=== PATIENT | female | born 1955 | race Caucasian/White ===

== ENCOUNTER 2024-04-21 16:14 | Inpatient (IN) | payer BC, MEDICARE, SELFPAY ==
[2024-04-21 15:44] VITALS: RESP 18; O2SAT 96
[2024-04-21 15:49] VITALS: BP 132/74; PULSE 64; RESP 18; TEMP 36.4; O2SAT 96; BMI 26.1
--- NOTE | 2024-04-21 16:42 | P.IMHP_ITS ---
Hospitalist- H&P: HPI History of Present Illness Date Seen: 04/21/24 Chief complaint: sodium 118 - from [facility] Narrative: Rosy Ac is a 68 year old female who was direct admitted from our Cancer [facility] clinic today for acute on chronic hyponatremia. 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 Today, her Sodium in clinic was 118. She received a 1L bolus of NS over 2 hours in [facility] prior to arrival on the floor. Currently has no headache, dizziness, or visual complaints. She's at her baseline physically. Recently placed on oral Sodium replacement, tolerating this okay. She has had intermittent nausea, but notes that she's been eating well over the past few days. Hasn't been actively limiting free water intake. Currently, no complaints pain, abdominal or otherwise. Oncology history below, shares care with Oncology team at [facility] and [facility]. 1. Presentation: Developed cough June 2023, leading to CT chest. During the preceding year, she noticed increasing dyspnea on exertion. 2. Critical Imagin07/18/[address]: 1. 4 cm right lower lobe mass with irregular margins. Multiple other pleural and parenchymal nodules. Neoplasm, such as bronchogenic carcinoma, is a primary consideration. Recommend PET/CT to further characterize and identify possible targets for tissue sampling. 2. Mediastinal and likely right hilar adenopathy. 3. Emphysema, with some reticular changes in the periphery of both lungs. Suspect a combination of obstructive and restrictive lung disease. 4. 1.8 cm ovoid hypodensity along the diaphragmatic surface of the liver, possibly a liver lesion. 3. Biopsy/Pathology: 08/27/2023: Liver, mass, biopsy: Metastatic high grade neuroendocrine carcinoma. Based on the clinical information and immunoperoxidase profile, the origin of this tumor is from a pulmonary small cell carcinoma. [facility] review-- Liver, needle core biopsy ([id number]; 08/27/2023): High-grade neuroendocrine carcinoma, small cell type. Immunohistochemistry (reviewed at [facility]) shows expression of synaptophysin and TTF-1 while CDX2 is negative. Ki 67 highlights more than 90% of the tumor cells. 4. Critical Imaging 09/04/2023 PET-CT: 1. Stage IV right small cell lung cancer with diamante, innumerable hepatic, and skeletal metastasis (left ischial tuberosity, right femoral head, left acetabulum) 09/04/2023 MR Brain: 1. 5 mm nodular enhancement in left posterior paramedian cerebellar hemisphere which, given the history, would be c/w metastasis. Patchy abnormal enhancement right basiocciput and right side of clivus c/w findings on PET/CT; also c/w metastases. Additional osseous detail may be obtained with CT. Moderate chronic ischemic change. Mild atrophy. Bilateral mastoid opacification. 5. Systemic therapy 09/06/2023 - CARBOplatin / Etoposide / Durvalumab, first line, palliative intent CY1: 09/06/23 CY2: 10/10/23 Note: On hold after 10/10/23 due to multiple acute complications including severe sepsis/hypotension/left lower lobe pneumonia/fever/diarrhea associated with br ight red blood per rectum, generalized weakness/nausea poor appetite/paraneoplastic SIADH syndrome, emphysema/electrolyte impairment/pain. CY3: 11/25/23 CY4: 12/16/23 Durvalumab maintenance: 01/08/24 Discontinued therapy for progression on PET 01/29/2024 6. Critical Imaging 11/07/2023 MRI brain: - consistent with favorable treatment response in the cerebellum. No residual enhancing metastases is identified in the posterior fossa. - New 1-2 mm indeterminate enhancing lesion in the left frontal lobe a new versus more conspicuous enhancing lesion in the right basal ganglia. Both lesions concerning for new sites of intracranial metastatic disease. - Decreased conspicuity of the signal abnormality and enhancement in the suspected osseous metastases in right skull base. 11/07/2023 MRI of lumbar spine: - consistent with metastases involving the posterior L4 vertebral body with slight extension into right pedicle corresponding to the FDG avid lesion. - Additional smaller L2/S2 vertebral body metastases and probable metastases involving L2 spinous process with paraspinal edema. 11/07/2023 PET scan: - consistent with new left lower lobe FDG avid consolidation with cavitary changes favored to represent pneumonia. Partial metabolic response. - FDG avid pulmonary/pleural malignancy, diamante/hepatic/osseous metastases have overall decreased compared to 09/04/2023. - The FDG uptake in the L2 spinous process indeterminate. Lumbar spine could evaluate further. 01/07/2024 MRI brain: - Small linear enhancement in the left posteromedial cerebellum at the site of prior enhancing lesion seen in 09/04/2023 MRI, but new since 11/07/2023 MRI. Although could be evolving treatment related change, small recurrent tumor cannot be excluded. 01/09/2024 MRI lumbar spine: - No new osseous metastases. Decreased signal associated with the L2 endplate and S2 vertebral body metastases No plan for radiation or Neurosurgery at this time. Continue to monitor both brain skeletal disease for change/symptoms 7. Progression 01/29/2024 PET/CT: - interval increased metabolic activity and size of right lower lobe pulmonary mass/nodules, interval marked progression of hepatic metastases, interval s lightly increased metabolic activity of osseous metastases, and interval increased metabolic activity of diamante metastases most prominent in retrocrural/paraesophageal nodes 8. Systemic Therapy 02/06/2024 - Lurbinectedin, second line, palliative intent CY1: 02/06/24 CY2: 02/27/24 CY3: Tentatively around 03/18/2024 03/17/2024 CT chest abdomen pelvis Impression: 1. Right lower lobe nodule and mass have decreased in size. 2. Previously described left lower lobe infectious/inflammatory cavitary opacity has resolved. 3. Resolved small left pleural effusion. Decreased right pleural nodular effusion. 4. Remainder not significantly changed, including the combined pulmonary fibrosis and emphysema and mosaic attenuation that likely represent small airways disease related air trapping. Review of Systems Status of ROS: Reports: 10 or more systems reviewed and unremarkable except as noted in History and below [facility] Medical History (Updated 04/21/24 @ 18:24 by Courtney Blair MD) Chronic pulmonary embolism ?I27.82 - Chronic pulmonary embolism (ICD-10) Hypothyroidism ?E03.9 - Hypothyroidism, unspecified (ICD-10) Metastatic carcinoma to bone ?C79.51 - Secondary malignant neoplasm of bone (ICD-10) Emphysema lung ?J43.9 - Emphysema, unspecified (ICD-10) Dehydration symptoms ?R63.8 - Other symptoms and signs concerning food and fluid intake (ICD-10) GI bleed ?K92.2 - Gastrointestinal hemorrhage, unspecified (ICD-10) Pneumonia ?J18.9 - Pneumonia, unspecified organism (ICD-10) Sepsis ?A41.9 - Sepsis, unspecified organism (ICD-10) Smoking history ?Z87.891 - Personal history of nicotine dependence (ICD-10) Dermatitis ?L30.9 - Dermatitis, unspecified (ICD-10) Hyponatremia ?E87.1 - Hypo-osmolality and hyponatremia (ICD-10) History of syndrome of inappropriate antidiuretic hormone (SIADH) ?Z86.39 - Personal history of other endocrine, nutritional and metabolic disease (ICD-10) Surgical History (Updated 04/21/24 @ 18:20 by Courtney Blair MD) History of thrombectomy ?Z98.890 - Other specified postprocedural states (ICD-10) ?Z86.718 - Personal history of other venous thrombosis and embolism (ICD-10) History of gastric bypass ?Z98.84 - Bariatric surgery status (ICD-10) Social History (Updated 04/21/24 @ 17:35 by Courtney Blair MD) Narrative: Living with tramaine Love and CASI Heaton; they would be medical decision makers if needed. Former smoker, no concerning ETOH use. Requests DNI status, amenable to trial of CPR. What is your current living situation?: I presently have a place to live Problems where you live: no known problems Problems where you live details: no problems In the past 12 months, utilities in danger of being shut off: no In past 12 months, lack of transportation kept you from medical appts, meetings, work, or getting things needed for daily living: no In the past 12 mos, have been you worried that your food would run out before you had money to buy more?: never true In the past 12 mos, the food you bought just didn't last and you didn't have money to buy more?: never true Smoking Status: Former smoker Do you use any of these nicotine containing products: None Second hand tobacco smoke exposure: No How often do you have a drink containing alcohol: 2-4 times a month Alcohol type: wine How many standard drinks containing alcohol do you have on a typical day: 1 or 2 How often do you have six or more drinks on one occasion: Never AUDIT-C Alcohol total score: 2 Non-prescribed substance use: denies use Caffeine: Yes How often does anyone, including family, friends and others, physically hurt you : never How often does anyone, including family, friends and others, insult or talk down to you: never How often does anyone, including family, friends and others, threaten you with harm: never How often does anyone, including family, friends and others, scream or curse at you: never Are you using contraception or practicing any form of control: No service: No Meds Home Medications and Allergies Home Medications ?Medication ?Instructions ?Recorded ?Confirmed ?Type acetaminophen 500 mg capsule 500 mg PO Q6H PRN 11/19/23 04/21/24 History albuterol sulfate 90 mcg/actuation 2 puff inhalation Q6H PRN 11/19/23 04/21/24 History aerosol inhaler apixaban 5 mg tablet (Eliquis) 5 mg PO BID 11/19/23 04/21/24 History ascorbic acid (vitamin C) 500 mg 500 mg PO DAILY 11/19/23 04/21/24 History capsule calcium carbonate 600 mg-vitamin 1 tab PO QDAY 11/19/23 04/21/24 History D3 20 mcg (800 unit) tablet carboxymethylcellulose sodium 1 % 1 drp ophthalmic (eye) TID PRN 11/19/23 04/21/24 History eye drops (Artificial Tears (carboxymethylcellulose)) cyanocobalamin (vitamin B-12) 500 1,000 mcg PO .qod 11/19/23 04/21/24 History mcg lozenges cyclobenzaprine 10 mg tablet 10 mg PO Q6H PRN 11/19/23 04/21/24 History iron,carbonyl 65 mg-vitamin C 125 1 tab PO QDAY 11/19/23 04/21/24 History mg tablet,delayed release lorazepam 0.5 mg tablet 0.5 mg PO BID PRN 11/19/23 04/21/24 History lutein 20 mg capsule 20 mg PO QDAY 11/19/23 04/21/24 History morphine 15 mg tablet,extended 15 mg PO QHS PRN 11/19/23 04/21/24 History release multivitamin with minerals-folic 1 tab PO QDAY 11/19/23 04/21/24 History acid 80 mcg chewable tablet (Centrum Adult 50 Plus) olanzapine 5 mg tablet 5 mg PO DIRECTED 11/19/23 04/21/24 History omega 5-wzu-vhm-fish oil 300 1 cap PO QDAY 11/19/23 04/21/24 History mg-1,000 mg capsule ondansetron 8 mg disintegrating 8 mg PO Q8H PRN 11/19/23 04/21/24 History tablet oxycodone 5 mg tablet 5 mg PO Q4H PRN 11/19/23 04/21/24 History oxymetazoline 0.05 % nasal mist 2 spray intranasal Q12H PRN 11/19/23 04/21/24 History (Afrin (oxymetazoline)) pantoprazole 40 mg tablet,delayed 40 mg PO QDAY 11/19/23 04/21/24 History release polyethylene glycol 3350 17 gram 17 g PO QDAY 11/19/23 04/21/24 History oral powder packet chlorpheniramine maleate 4 mg 4 mg PO Q4-6H PRN 02/06/24 04/21/24 History tablet (Aller-Chlor) levothyroxine 175 mcg tablet 175 mcg PO DAILY 02/06/24 04/21/24 History metoprolol tartrate 25 mg tablet 6.25 mg PO QDAY 02/27/24 04/21/24 History sennosides 8.6 mg-docusate sodium 1 tab-cap PO QDAY 04/13/24 04/21/24 History 50 mg tablet Allergies Allergy/AdvReac Type Severity Reaction Status Date / Time fosaprepitant Allergy Severe Anaphylaxis Verified 04/21/24 15:57 [From Emend (fosaprepitant)] Exam Narrative: Exam Narrative: GEN: Alert and oriented, appears chronically ill but nontoxic, sitting comfortably in bed and answering questions appropriately HEENT: EOMIs bilaterally, no scleral icterus CV: RRR, No concerning murmurs R: LCTA bilaterally without concerning wheezing, no tachypnea Ab: Soft and nontender, tolerates palpation well. Normoactive bowel sounds Ext: + clubbing BUEs, no concerning edema Skin: Scattered bruising on extremities Neuro: No focal deficits Psych: Appropriate Const: Vital Signs, click to edit/add: Vital Signs - 24 hr 04/21/24 15:49 Temperature 97.5 F L Pulse Rate [Pulse Oximeter] 64 Respiratory Rate 18 Blood Pressure [Le ft Arm] 132/74 Pulse Oximetry 96 Oxygen Delivery Me thod Room Air Assessment and Plan Assessment and plan (1) Hyponatremia: Problem comment: - known history of SIADH, baseline sodium 130 - repeat Na on the floor 117, will give 50mL of hypertonic saline and follow sodium closely to ensure appropriate rate of correction - continue home supplement, mild fluid restriction + thrice daily protein shakes Status: Acute (2) Small cell lung cancer in adult: Problem comment: - extensive stage high grade neuroendocrine carcinoma of the lung (small cell) diagnosed 08/2023 - brain and liver mets Status: Acute (3) Anorexia: Problem comment: - associated with metastatic cancer Status: Acute (4) Chronic pulmonary embolism: Problem comment: - on Eliquis BID Status: Acute Plan - per above - no therapy or SW needs identified on admission, plans to d/c home with son when medically stable - Eliquis and PPI for ppx - son Ivan updated at bedside, questions answered
[2024-04-21 16:53] LABS: Sodium* 117 mmol/L (135-149)
[2024-04-21] MEDS: 0.9 % SODIUM CHLORIDE 1000 ml 1,000 ML 75 ML IV (17:33)
[2024-04-21 19:00] VITALS: BP 116/71; PULSE 69; RESP 18; TEMP 36.7; O2SAT 99
--- NOTE | 2024-04-21 19:00 | PC.NURSE ---
Pt is pleasant, alert, oriented and vitally stable. Admitted to med surg via wheelchair. Son at bedside. 1500 cc fluid restriction.
[2024-04-21] MEDS: 3 % SODIUM CHLORIDE 500 ml 50 ML 33.33 ML IV (19:29)
[2024-04-21] MEDS: GABAPENTIN 300 MG CAPSULE PO (20:44)
[2024-04-21] MEDS: APIXABAN 5 MG TABLET PO (20:45)
[2024-04-21] MEDS: MEMANTINE HCL 10 MG TABLET 5 MG PO (20:45)
[2024-04-21 22:18] LABS: Sodium* 118 mmol/L (135-149)
[2024-04-21 23:00] VITALS: BP 114/66; PULSE 66; PULSE 69; RESP 18; TEMP 36.8; O2SAT 99
[2024-04-22] VITALS (8 sets, daily range): BP systolic 71–134; BP diastolic 41–78; PULSE 63–97; RESP 16–20; TEMP 36.1–37.4; O2SAT 93–99; BMI 25.7
[2024-04-22 02:41] LABS: Sodium* 120 mmol/L (135-149)
[2024-04-22] MEDS: LEVOTHYROXINE 25 MCG TABLET 50 MCG PO (05:52)
[2024-04-22] MEDS: LEVOTHYROXINE 125 MCG TABLET PO (05:53)
--- NOTE | 2024-04-22 06:25 | PC.NURSE ---
End of shift [id number]: Pleasant and cooperative with cares, alert and oriented x 4. Compliant with fluid restriction. Sodium lab draw a 0200 120, call placed to [facility] and Dr. Vel Bolaños updated with new lab by Chaparrita Solorzano RN, no new orders at this time. Pain well managed with current regimen. SBA with walker for transfers and ambulation, patient requires assistance with IV pole. Continent of bladder and bowel. Denies any nausea or vomiting.
[2024-04-22 06:42] LABS: Basophils Absolute Auto 0.03 K/uL (0.00-0.30); Basophils Percent Auto 0.6 % (0.0-3.0); Eosinophils Absolute Auto 0.09 K/uL (0.00-0.50); Eosinophils Percent Auto 1.9 % (0.0-7.0); Hematocrit 29.3 % (33.0-51.0); Hemoglobin* 9.7 gm/dL (12.0-16.0); Immature Granulocytes Abs Auto 0.02 K/uL (0.00-0.30); Immature Granulocytes Pct Auto 0.4 %; Lymphocytes Percent Auto 10.4 % (20-44); Mean Corpuscular HGB Conc 33 gm/dL (32-36); Mean Corpuscular Hemoglobin 27 pg (26-34); Mean Corpuscular Volume 83 fL (80-100); Monocytes Percent Auto 12.1 % (0.0-11.0); Neutrophils Percent Auto 74.6 % (42.0-72.0); Platelet Count* 211 K/uL (140-440); RDW Coefficient of Variation % 15.9 % (11.5-15.5); Red Blood Count 3.55 m/uL (4.00-5.20); White Blood Count* 4.62 K/uL (4.50-11.00)
[2024-04-22 06:46] LABS: Slide Review Reflex No
[2024-04-22 07:03] LABS: Chloride* 92 mmol/L (96-114); Potassium* 3.8 mmol/L (3.6-5.1)
[2024-04-22 07:06] LABS: Anion Gap 1 mEq/L (7-15); Blood Urea Nitrogen* 4 mg/dL (7-30); Calcium* 7.8 mg/dL (8.4-10.6); Carbon Dioxide* 27 mmol/L (20-32); Creatinine* 0.5 mg/dL (0.5-1.5); Est. Creatinine Clearance* 57.05; Estimated Glomerular Filt Rate 103 ml/min; Glucose* 76 mg/dL (60-115)
[2024-04-22 07:08] LABS: Sodium* 120 mmol/L (135-149)
[2024-04-22] MEDS: 0.9 % SODIUM CHLORIDE 1000 ml 1,000 ML 75 ML IV ×2 (08:31→20:07)
[2024-04-22] MEDS: MEMANTINE HCL 10 MG TABLET PO (08:32)
[2024-04-22] MEDS: OMEPRAZOLE 20 MG CAPSULE DR 40 MG PO (08:32)
[2024-04-22] MEDS: APIXABAN 5 MG TABLET PO ×2 (08:32→20:08)
[2024-04-22] MEDS: SODIUM CHLORIDE 1 GM TABLET PO ×2 (08:32→18:14)
[2024-04-22] MEDS: OXYCODONE 5 MG TABLET PO (09:40)
[2024-04-22] MEDS: CARBOXYMETHYLCELLULOSE (REFRESH PLUS) TEARS 1 DROP EYE-BOTH ×2 (11:28→16:15)
[2024-04-22] MEDS: 0.9 % SODIUM CHLORIDE 250 ml 250 ML IV (11:28)
[2024-04-22 11:53] LABS: Sodium* 120 mmol/L (135-149)
--- NOTE | 2024-04-22 12:24 | REH.PT ---
PT ordered noted. PA verbal order to disregard PT as patient does not need therapy. Order cancelled.
--- NOTE | 2024-04-22 13:11 | PM.IMPN1 ---
Progress Note: A&P Assessment and plan (1) Hyponatremia: Problem details: - known history of SIADH, baseline sodium 130 - repeat Na on the floor 117, will give 50mL of hypertonic saline and follow sodium closely to ensure appropriate rate of correction - continue home supplement, mild fluid restriction + thrice daily protein shakes 04/22: Sodium improved to 120. Resumed home sodium tabs to t.i.d.. Recheck sodium at 6:00 p.m. 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 SBP <90 this morning. H/o SBP 70-80s in past. Did give 250ml bolus, improved to >90. Status: Acute Time Spent With Patient Total time spent: Total time spent caring for the patient today was 45 minutes. This includes time spent for the visit reviewing the chart, time spent during the visit, time spent after the visit and documentation and planning in coordination of care. Subjective Date Seen: 04/22/24 Interval history: Patient is seen lying in bed, with son and [id number] at bedside. Remains fatigued. Did not sleep well. Complains of low back pain. Denies headache or dizziness. Denies chest pain or shortness of breath. No nausea vomiting. Has been up ambulating to bathroom. Sodium on admission 117, has improved to 120 this morning. Exam Narrative: Exam Narrative: PHYSICAL EXAM General: Pleasant, conversant, NAD HEENT: Normocephalic, atraumatic, sclera white, EOMI, oral mucosa moist Cardiovascular: RRR, S1S2. No pitting edema Pulmonary: CTA bilaterally without rhonchi, rales, expiratory wheezes. No dyspnea on room air Abdominal: Soft, nondistended, NTTP Neurological: Alert, answering questions appropriately, cranial nerves intact, no focal findings Extremities: No gross joint deformity or swelling. AROMI. Neurovascularly intact Skin: Warm, dry. Const: Vital Signs, click to edit/add: Vital Signs - 24 hr 04/21/24 15:44 04/21/24 15:49 04/21/24 19:00 Temperature 97.5 F L 98.0 F Pulse Rate [Pulse Oximeter] 64 69 Respiratory Rate 18 18 18 Blood Pressure [Le ft Arm] 132/74 116/71 Pulse Oximetry 96 96 99 Oxygen Delivery Me thod Room Air Room Air Room Air 04/21/24 23:00 04/21/24 23:00 04/21/24 23:00 Temperature 98.2 F Pulse Rate [Pulse Oximeter] 69 66 Respiratory Rate 18 18 18 Blood Pressure [Le ft Arm] 114/66 Pulse Oximetry 99 99 Oxygen Delivery Md thod Room Air Room Air 04/22/24 03:00 04/22/24 07:00 04/22/24 08:15 Temperature 97.0 F L 97.1 F L Pulse Rate [Pulse Oximeter] 77 97 97 Respiratory Rate 20 18 18 Blood Pressure [Le ft Arm] 119/72 84/54 L Pulse Oximetry 99 98 Oxygen Delivery Md thod Room Air Room Air 04/22/24 08:15 Temperature Pulse Rate [Pulse Oximeter] Respiratory Rate 18 Blood Pressure [Le ft Arm] Pulse Oximetry 98 Oxygen Delivery Me thod Room Air Labs Labs: Laboratory Results - last 24 hr 04/21/24 04/21/24 04/22/24 16:35 21:57 02:00 WBC RBC Hgb Hct MCV MCH MCHC RDW Coeff of Akash Plt Count Neut % (Auto) Lymph % (Auto) Chambers % (Auto) Eos % (Auto) Baso % (Auto) Neut # (Auto) Lymph # (Auto) [place] # (Auto) Eos # (Auto) Baso # (Auto) Abs Immat Gran (auto) Imm/Tot Granulo (auto) Sodium 117 L* 118 L* 120 L* Potassium Chloride Carbon Dioxide Anion Gap BUN Creatinine Estimated Creat Clear Estimated GFR Glucose Calcium 04/22/24 04/22/24 06:29 11:30 WBC 4.62 RBC 3.55 L Hgb 9.7 L Hct 29.3 L MCV 83 MCH 27 MCHC 33 RDW Coeff of Akash 15.9 H Plt Count 211 Neut % (Auto) 74.6 H Lymph % (Auto) 10.4 L Chambers % (Auto) 12.1 H Eos % (Auto) 1.9 Baso % (Auto) 0.6 Neut # (Auto) 3.40 Lymph # (Auto) 0.50 L Chambers # (Auto) 0.60 Eos # (Auto) 0.09 Baso # (Auto) 0.03 Abs Immat Gran (auto) 0.02 Imm/Tot Granulo (auto) 0.4 Sodium 120 L* 120 L* Potassium 3.8 Chloride 92 L Carbon Dioxide 27 Anion Gap 1 L BUN 4 L Creatinine 0.5 Estimated Creat Clear 57.05 Estimated GFR 103 Glucose 76 Calcium 7.8 L
--- NOTE | 2024-04-22 15:38 | PC.NURSE ---
End of Shift: Patient pleasant and cooperative, A&O. This morning patients BP was slightly low at 84/54, MD notified, held metoprolol. Patient then had a BP of 71/41 at 1100 vitals, MD notified, 250ml bolus completed. BP then came up to 96/52, MD notified. Patient reports pain on back this shift, managed with PRN medication, see MAR. Patient did have one large loose incontinent BM this shift. 1500ml fluid restriction. SBA with walker and IV pole.
[2024-04-22] MEDS: ONDANSETRON ODT 4 MG TAB 8 MG PO (18:27)
[2024-04-22 19:00] LABS: Sodium* 122 mmol/L (135-149)
[2024-04-22] MEDS: MEMANTINE HCL 10 MG TABLET 5 MG PO (20:08)
[2024-04-22] MEDS: GABAPENTIN 300 MG CAPSULE PO (20:08)
[2024-04-22] MEDS: OLANZapine 5 MG TAB.RAPDIS PO (20:09)
[2024-04-22] MEDS: ACETAMINOPHEN 325 MG TABLET 650 MG PO (20:09)
[2024-04-22 21:33] LABS: PCR FLU A Negative PCR FLU A (Negative); PCR FLU B Negative PCR FLU B (Negative); SARS PCR* Negative SARS-CoV-2 (Negative)
[2024-04-22 22:35] LABS: Sodium* 118 mmol/L (135-149)
[2024-04-22] MEDS: 3 % SODIUM CHLORIDE 500 ml 50 ML 33.33 ML IV (22:44)
[2024-04-23] VITALS (9 sets, daily range): BP systolic 98–130; BP diastolic 60–76; PULSE 69–94; RESP 16–20; TEMP 36.3–37.1; O2SAT 94–99
[2024-04-23] MEDS: LEVOTHYROXINE 125 MCG TABLET PO (05:48)
[2024-04-23] MEDS: LEVOTHYROXINE 25 MCG TABLET 50 MCG PO (05:48)
--- NOTE | 2024-04-23 06:02 | PC.NURSE ---
End of shift [id number]: Family placed call light on at 1910 and reportd to TEGAN that patient was flush. Upon arrival to room patient had flushed cheeks and reporting chills. Oral temp 99.3. Denies any pain, cough or SOB at that time. Lung sounds clear and bowel sounds active x 4. Flag Football Coach updated Dr. Blair with facial flushing, chills, generalized aches and current vitals. New order to obtain COVID/Flu swab. Flag Football Coach obtained swab and lab resulted as negative, MD updated with results, no new orders. Patient has remained afebrile throughout the night, denied any further chills or generalized aching. Transfers independently, ambulates with SBA with walker, patient unable to maneuver walker and IV pole without assistance. Compliant with fluid restrictions, voiding moderate amount of clear, straw colored urine.
[2024-04-23 06:30] LABS: Basophils Absolute Auto 0.03 K/uL (0.00-0.30); Basophils Percent Auto 0.6 % (0.0-3.0); Eosinophils Percent Auto 2.1 % (0.0-7.0); Hematocrit 30.4 % (33.0-51.0); Immature Granulocytes Abs Auto 0.02 K/uL (0.00-0.30); Immature Granulocytes Pct Auto 0.4 %; Lymphocytes Percent Auto 11.5 % (20-44); Mean Corpuscular HGB Conc 33 gm/dL (32-36); Mean Corpuscular Hemoglobin 27 pg (26-34); Mean Corpuscular Volume 83 fL (80-100); Monocytes Percent Auto 11.7 % (0.0-11.0); Neutrophils Percent Auto 73.7 % (42.0-72.0); Platelet Count* 252 K/uL (140-440); RDW Coefficient of Variation % 16.2 % (11.5-15.5); Red Blood Count 3.67 m/uL (4.00-5.20); White Blood Count* 4.87 K/uL (4.50-11.00)
[2024-04-23 06:32] LABS: Slide Review Reflex No
[2024-04-23 06:41] LABS: Chloride* 95 mmol/L (96-114)
[2024-04-23 06:44] LABS: Creatinine* 0.5 mg/dL (0.5-1.5); Est. Creatinine Clearance* 57.05; Estimated Glomerular Filt Rate 103 ml/min
[2024-04-23 06:45] LABS: Anion Gap 2 mEq/L (7-15); Blood Urea Nitrogen* 3 mg/dL (7-30); Calcium* 8.1 mg/dL (8.4-10.6); Carbon Dioxide* 25 mmol/L (20-32); Glucose* 79 mg/dL (60-115)
[2024-04-23 06:51] LABS: Sodium* 122 mmol/L (135-149)
[2024-04-23] MEDS: SODIUM CHLORIDE 1 GM TABLET PO ×3 (08:29→17:51)
[2024-04-23] MEDS: OMEPRAZOLE 20 MG CAPSULE DR 40 MG PO (08:30)
[2024-04-23] MEDS: MAGNESIUM OXIDE 400 MG TABLET PO (08:30)
[2024-04-23] MEDS: MEMANTINE HCL 10 MG TABLET PO (08:31)
[2024-04-23] MEDS: APIXABAN 5 MG TABLET PO ×2 (08:31→20:21)
[2024-04-23] MEDS: 3 % SODIUM CHLORIDE 500 ml 50 ML 33.33 ML IV ×2 (09:57→23:23)
--- NOTE | 2024-04-23 11:36 | PM.IMPN1 ---
Progress Note: A&P Assessment and plan (1) Hyponatremia: Problem details: - known history of SIADH, baseline sodium 130 - repeat Na on the floor 117, will give 50mL of hypertonic saline and follow sodium closely to ensure appropriate rate of correction - continue home supplement, mild fluid restriction + thrice daily protein shakes 04/22: Sodium improved to 120. Resumed home sodium tabs to t.i.d.. Recheck sodium 122 04/23: Sodium dropped again to 118 yesterday, received a 2nd bolus of hypertonic saline, improved to 122 this morning. Will give a 3rd dose of hypertonic saline with recheck of sodium over the course of the day. Continues on mild fluid restriction, sodium tablets, protein shakes. Okay for table salt in diet. 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 Weight loss of 12 kg since November, stable since January. Status: Acute (4) Chronic pulmonary embolism: Problem details: - on Eliquis BID Status: Acute (5) Hypotension: Problem details: Acute on chronic, recurrent, suspected currently in setting of decreased oral intake, fluid restriction, hyponatremia. Asymptomatic with episodes SBP <90 on 04/22. H/o SBP 70-80s in past. Did give 250ml bolus, improved to >90. Continuing to monitor. Holding beta-tianna as needed with parameters Status: Acute (6) Malnutrition: Problem details: Nutritional imbalance. 12 kg weight loss since November (max 15 kg over this time period). Anorexia. Decreased oral intake. Suspected reduced muscle mass Suspected in setting of small cell lung cancer with Mets Status: Acute Plan Continue sodium supplementation, hopeful possible discharge 1-2 days Time Spent With Patient Total time spent: Total time spent caring for the patient today was 45 minutes. This includes time spent for the visit reviewing the chart, time spent during the visit, time spent after the visit and documentation and planning in coordination of care. Subjective Date Seen: 04/23/24 Interval history: Patient is seen today sitting on the edge of the bed with family present. Reports feeling much better. Appetite is improving. Back pain improved. Sodium on admission was 117, has slowly improved to 122 yesterday, then back down to 118, then back to 122 again this morning following hypertonic saline. Last night, reported to be come flushed. Temperature was taken without a fever, 99.3. COVID swab negative. Denies new or worsening cough. Lung sounds have been clear. Denies abdominal pain. Appetite is improving. Exam Narrative: Exam Narrative: PHYSICAL EXAM General: Pleasant, conversant, NAD Cardiovascular: RRR Pulmonary: CTA bilaterally without rhonchi, rales, expiratory wheezes. No dyspnea on room air Abdominal: Soft, nondistended, NTTP Neurological: Alert, answering questions appropriately, cranial nerves intact, no focal findings Extremities: No gross joint deformity or swelling. AROMI. Neurovascularly intact Skin: Warm, dry. Const: Vital Signs, click to edit/add: Vital Signs - 24 hr 04/22/24 15:00 04/22/24 15:00 04/22/24 15:00 Temperature 98.1 F Pulse Rate [Pulse Oximeter] 84 84 Respiratory Rate 16 18 18 Blood Pressure [Le ft Arm] 134/78 Pulse Oximetry 95 [facility] 04/22/24 19:00 04/22/24 20:09 04/22/24 23:00 Temperature 99.3 F 99.3 F Pulse Rate [Pulse Oximeter] 78 87 Respiratory Rate 18 18 Blood Pressure [Le ft Arm] 119/73 Pulse Oximetry 97 Oxygen Delivery [facility] Room Air 04/22/24 23:00 04/22/24 23:00 04/23/24 03:00 Temperature 97.1 F L 98.2 F Pulse Rate [Pulse Oximeter] 87 75 Respiratory Rate 20 20 20 Blood Pressure [Le ft Arm] 92/64 101/60 Pulse Oximetry 97 97 98 Oxygen Delivery [facility] Room Air Room Air Room Air 04/23/24 07:00 04/23/24 08:15 04/23/24 08:15 Temperature 97.5 F L Pulse Rate [Pulse Oximeter] 73 73 Respiratory Rate 18 18 18 Blood Pressure [Le ft Arm] 98/68 Pulse Oximetry 94 94 Oxygen Delivery [facility] Room Air Room Air Labs Labs: Laboratory Results - last 24 hr 04/22/24 04/22/24 04/22/24 11:30 16:30 20:45 WBC RBC Hgb Hct MCV MCH MCHC RDW Coeff of Akash Plt Count Neut % (Auto) Lymph % (Auto) [place] % (Auto) Eos % (Auto) Baso % (Auto) Neut # (Auto) Lymph # (Auto) [place] # (Auto) Eos # (Auto) Baso # (Auto) Abs Immat Gran (auto) Imm/Tot Granulo (auto) Sodium 120 L* 122 L* Potassium Chloride Carbon Dioxide Anion Gap BUN Creatinine Estimated Creat Clear Estimated GFR Glucose Calcium SARS-CoV-2 (PCR) Negative SARS-CoV-2 Influenza Type A (PCR) Negative PCR FLU A Influenza Type B (PCR) Negative PCR FLU B 04/22/24 04/23/24 22:03 05:53 WBC 4.87 RBC 3.67 L Hgb 10.0 L Hct 30.4 L MCV 83 MCH 27 MCHC 33 RDW Coeff of Akash 16.2 H Plt Count 252 Neut % (Auto) 73.7 H Lymph % (Auto) 11.5 L [place] % (Auto) 11.7 H Eos % (Auto) 2.1 Baso % (Auto) 0.6 Neut # (Auto) 3.60 Lymph # (Auto) 0.60 L [place] # (Auto) 0.60 Eos # (Auto) 0.10 Baso # (Auto) 0.03 Abs Immat Gran (auto) 0.02 Imm/Tot Granulo (auto) 0.4 Sodium 118 L* 122 L* Potassium 4.0 Chloride 95 L Carbon Dioxide 25 Anion Gap 2 L BUN 3 L Creatinine 0.5 Estimated Creat Clear 57.05 Estimated GFR 103 Glucose 79 Calcium 8.1 L SARS-CoV-2 (PCR) Influenza Type A (PCR) Influenza Type B (PCR)
[2024-04-23 12:28] LABS: Sodium* 124 mmol/L (135-149)
[2024-04-23] MEDS: 0.9 % SODIUM CHLORIDE 1000 ml 1,000 ML 75 ML IV (12:35)
[2024-04-23] MEDS: LORATADINE 10 MG TABLET PO (15:52)
[2024-04-23] MEDS: CARBOXYMETHYLCELLULOSE (REFRESH PLUS) TEARS 1 DROP EYE-BOTH (15:52)
[2024-04-23 17:11] LABS: Sodium* 124 mmol/L (135-149)
[2024-04-23] MEDS: ONDANSETRON ODT 4 MG TAB 8 MG PO (17:59)
--- NOTE | 2024-04-23 19:01 | PC.NURSE ---
End of Shift: Patient pleasant and cooperative, A&O. VSS, afebrile. Held morning dose of metoprolol per MD. Patient has been refusing nutritional supplements this shift. Patient denies pain this shift. Patient reports feeling nauseas this shift, managed with PRN medication, see MAR. Tolerating regular diet. SBA to bathroom.
[2024-04-23] MEDS: OLANZapine 5 MG TAB.RAPDIS PO (20:20)
[2024-04-23] MEDS: GABAPENTIN 300 MG CAPSULE PO (20:21)
[2024-04-23] MEDS: MEMANTINE HCL 10 MG TABLET 5 MG PO (20:21)
[2024-04-23] MEDS: CYCLOBENZAPRINE HCL 10 MG TABLET PO (20:22)
[2024-04-23 20:29] LABS: Sodium* 124 mmol/L (135-149)
[2024-04-23] MEDS: guaiFENesin 100 MG/ML CUP PO (21:32)
[2024-04-23] MEDS: LORazepam 0.5 MG TABLET PO (21:37)
[2024-04-23] MEDS: OXYCODONE 5 MG TABLET PO (21:37)
[2024-04-24] VITALS (7 sets, daily range): BP systolic 99–146; BP diastolic 55–86; PULSE 78–99; RESP 18–20; TEMP 36.2–37; O2SAT 93–99
[2024-04-24] MEDS: OXYCODONE 5 MG TABLET PO (03:17)
[2024-04-24] MEDS: 0.9 % SODIUM CHLORIDE 1000 ml 1,000 ML 75 ML IV (03:18)
[2024-04-24] MEDS: LEVOTHYROXINE 125 MCG TABLET PO (05:43)
[2024-04-24] MEDS: LEVOTHYROXINE 25 MCG TABLET 50 MCG PO (05:43)
[2024-04-24 06:33] LABS: Hematocrit 27.8 % (33.0-51.0); Hemoglobin* 9.2 gm/dL (12.0-16.0); Mean Corpuscular HGB Conc 33 gm/dL (32-36); Mean Corpuscular Hemoglobin 27 pg (26-34); Mean Corpuscular Volume 82 fL (80-100); Platelet Count* 225 K/uL (140-440); Red Blood Count 3.38 m/uL (4.00-5.20); White Blood Count* 4.34 K/uL (4.50-11.00)
[2024-04-24 06:39] LABS: Chloride* 98 mmol/L (96-114); Potassium* 3.6 mmol/L (3.6-5.1)
[2024-04-24 06:42] LABS: Anion Gap 4 mEq/L (7-15); Carbon Dioxide* 21 mmol/L (20-32); Creatinine* 0.4 mg/dL (0.5-1.5); Est. Creatinine Clearance* 57.05; Estimated Glomerular Filt Rate 108 ml/min
[2024-04-24 06:43] LABS: Blood Urea Nitrogen* 2 mg/dL (7-30); Glucose* 78 mg/dL (60-115); Slide Review Reflex No
[2024-04-24 06:54] LABS: Sodium* 123 mmol/L (135-149)
--- NOTE | 2024-04-24 06:58 | PC.NURSE ---
?End of shift [id number]: Patient reporting increased low back pain this shift, PRN?s administered along with non pharmacological interventions with minimal relief of symptoms. ?Patient observed to be repositioning self frequently and appears restless .? ?At 2100 patient reporting increased nasal congestion and ?sinus headache?. ?Level Vial Marker updated Dr. Blair, new orders received. ?At 0100 patient IV infiltrated, new IV placed in right wrist. ?Patient drowsy at that time and non sensical conversation, advertising writer reoriented patient without difficulty. ? ?Denies any nausea or vomiting.?
[2024-04-24] MEDS: OMEPRAZOLE 20 MG CAPSULE DR 40 MG PO (08:26)
[2024-04-24] MEDS: LORATADINE 10 MG TABLET PO (08:27)
[2024-04-24] MEDS: APIXABAN 5 MG TABLET PO ×2 (08:27→20:39)
[2024-04-24] MEDS: SODIUM CHLORIDE 1 GM TABLET PO ×3 (08:30→19:45)
[2024-04-24] MEDS: MEMANTINE HCL 10 MG TABLET PO (08:30)
[2024-04-24] MEDS: MAGNESIUM OXIDE 400 MG TABLET PO (08:30)
[2024-04-24] MEDS: CETIRIZINE HCL 10 MG TABLET PO (08:30)
[2024-04-24] MEDS: 3 % SODIUM CHLORIDE 500 ml 50 ML 33.33 ML IV (09:18)
--- NOTE | 2024-04-24 10:18 | PM.IMPN1 ---
Progress Note: A&P Assessment and plan (1) Hyponatremia: Problem details: - known history of SIADH, baseline sodium 129 (per last hospitalization) - on admission, repeat Na on the floor 117, will give 50mL of hypertonic saline and follow sodium closely to ensure appropriate rate of correction - continue home supplement, mild fluid restriction + thrice daily protein shakes 04/22: Sodium improved to 120. Resumed home sodium tabs to t.i.d.. Recheck sodium 122 04/23: Sodium dropped again to 118 yesterday, received a 2nd bolus of hypertonic saline, improved to 122 this morning. Will give a 3rd dose of hypertonic saline with recheck of sodium over the course of the day. Continues on mild fluid restriction, sodium tablets, protein shakes. Okay for table salt in diet. 04/24: I think a reasonable goal for discharge to home is 127 (she may only get to 125, sustained, to consider as well). Fluid restriction has been decreased to 1200 mL. No free water - essentially no unsalted water. Family will pick pulling machine operator red and orange Gatorade. They will also pick pulling machine operator chocolate Fair Life protein drinks as she enjoys these. She will also drink V8. Family will also bring in pickles and olives as she enjoys these. These fluids would be an easy transition when she is ready to discharge to home as well. Pharmacy is reviewing any medications that may be contributing. This is likely multifactorial. Remainder of electrolytes acceptable. Magnesium 1.7. Currently on oral supplement once daily. Will give 1 time IV Mag dose. Continue with sodium tablets, hypertonic saline as needed. Sodium recheck at 1400pm and 2000pm. 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 Weight loss of 12 kg since November, stable since January. Status: Acute (4) Chronic pulmonary embolism: Problem details: - on Eliquis BID Status: Acute (5) Hypotension: Problem details: Acute on chronic, recurrent, suspected currently in setting of decreased oral intake, fluid restriction, hyponatremia. Asymptomatic with episodes SBP <90 on 04/22. H/o SBP 70-80s in past. Did give 250ml bolus, improved to >90. Continuing to monitor. Holding beta-tianna as needed with parameters Status: Acute (6) Malnutrition: Problem details: Nutritional imbalance. 12 kg weight loss since November (max 15 kg over this time period). Anorexia. Decreased oral intake. Suspected reduced muscle mass Suspected in setting of small cell lung cancer with Mets Status: Acute (7) Seasonal allergies: Problem details: Worsening symptoms over past 48 hours. Afebrile Continue antihistamine. Family will bring in Flonase. Saline nasal spray p.r.n. Continue to monitor Status: Acute Plan Stabilize sodium, 125-127. Home with fluid restriction as outlined above. Sodium recheck with PCP. Time Spent With Patient Total time spent: Total time spent caring for the patient today was 45 minutes. This includes time spent for the visit reviewing the chart, time spent during the visit, time spent after the visit and documentation and planning in coordination of care. Subjective Date Seen: 04/24/24 Interval history: Patient is lying in bed this morning with family at bedside. Feeling okay. Has not been up out of bed yet. Reports nasal congestion and rhinorrhea with known history of seasonal allergies. Has her certrizine to take but will need to bring in her Flonase from home. Patient sodium is slow to improve and is not sustained. Discussed with family. They did relate a previous outside hospital approach which seems severe. She had a fluid restriction of 1000 mL daily and not allowed any free water, only moistened swabs. Unfortunately, she also developed thrush of the mouth. Patient also tells me she is not drinking the Ensure protein drinks as ordered as she developed diarrhea with ease. Exam Narrative: Exam Narrative: PHYSICAL EXAM General: Pleasant, conversant, NAD Cardiovascular: RRR Pulmonary: CTA bilaterally without rhonchi, rales, expiratory wheezes. No dyspnea on room air Abdominal: Soft, nondistended, NTTP Neurological: Alert, answering questions appropriately, cranial nerves intact, no focal findings Extremities: No gross joint deformity or swelling. AROMI. Neurovascularly intact Skin: Warm, dry. Const: Vital Signs, click to edit/add: Vital Signs - 24 hr 04/23/24 11:39 04/23/24 15:00 04/23/24 16:34 Temperature 97.9 F 98.3 F Pulse Rate [Bilate ral Radial] Pulse Rate [Pulse Oximeter] 69 80 Respiratory Rate 18 18 18 Blood Pressure [Le ft Arm] 107/65 118/68 Pulse Oximetry 98 95 95 Oxygen Delivery Me thod Room Air Room Air Room Air 04/23/24 16:35 04/23/24 19:00 04/23/24 23:00 Temperature 98.8 F Pulse Rate [Bilate ral Radial] Pulse Rate [Pulse Oximeter] 80 89 94 Respiratory Rate 18 18 16 Blood Pressure [Le ft Arm] 123/73 Pulse Oximetry 98 Oxygen Delivery Me thod Room Air 04/23/24 23:00 04/23/24 23:00 04/24/24 03:00 Temperature 97.3 F L 97.3 F L Pulse Rate [Bilate ral Radial] Pulse Rate [Pulse Oximeter] 94 78 Respiratory Rate 16 16 18 Blood Pressure [Le ft Arm] 130/76 99/55 L Pulse Oximetry 99 99 98 Oxygen Delivery Me thod Room Air Room Air Room Air 04/24/24 07:00 04/24/24 07:00 04/24/24 07:00 Temperature 98.1 F Pulse Rate [Bilate ral Radial] 99 99 Pulse Rate [Pulse Oximeter] 78 Respiratory Rate 20 20 Blood Pressure [Le ft Arm] 101/64 Pulse Oximetry 97 97 Oxygen Delivery Me thod Room Air Room Air Labs Labs: Laboratory Results - last 24 hr 04/23/24 04/23/24 04/23/24 12:01 16:02 20:10 WBC RBC Hgb Hct MCV MCH MCHC Plt Count Sodium 124 L* 124 L* 124 L* Potassium Chloride Carbon Dioxide Anion Gap BUN Creatinine Estimated Creat Clear Estimated GFR Glucose Calcium 04/24/24 05:57 WBC 4.34 L RBC 3.38 L Hgb 9.2 L Hct 27.8 L MCV 82 MCH 27 MCHC 33 Plt Count 225 Sodium 123 L* Potassium 3.6 Chloride 98 Carbon Dioxide 21 Anion Gap 4 L BUN 2 L Creatinine 0.4 L Estimated Creat Clear 57.05 Estimated GFR 108 Glucose 78 Calcium 8.0 L
[2024-04-24] MEDS: MAGNESIUM IV 2 GM/50 ML PIGGYBACK IVPB (11:54)
--- NOTE | 2024-04-24 13:48 | PC.NURSE ---
End of Shift: Seen patient this am with provider. She received a bump of 3% sodium followed by an infusion of magnesium. Did not complain of any pain and per provider to plan is to change her to 1200 fluid restriction no free water/she can have fairlife shakes, gatorade and V8 juice, olives and regular chicken broth not the low sodium. Her daughter in law just went and picked up some things for her to have that the kitchen did not have. This will be in her closet in her room. Told daugher in law as long as we can track her intake of fluid as we don't want to exceed 1200cc in 24 hours. Family has been very attentive to her needs. Report given to Melyssa LOGAN.
[2024-04-24 14:22] LABS: Sodium* 125 mmol/L (135-149)
[2024-04-24] MEDS: FLUTICASONE PROPIONATE NASAL 1 SPRAY NOSTRIL-B (15:00)
--- NOTE | 2024-04-24 19:40 | PC.NURSE ---
Nursing Care Hours: [id number] Pt this shift calm and cooperative, alert and oriented. Independent in room when SL. C/o pain at IV site while Magnesium running. Y-site dilution with NS effective. Tolerating diet and fluid restriction. no c/o pain. VSS.
[2024-04-24 20:27] LABS: Sodium* 126 mmol/L (135-149)
[2024-04-24] MEDS: MEMANTINE HCL 10 MG TABLET 5 MG PO (20:38)
[2024-04-24] MEDS: OLANZapine 5 MG TAB.RAPDIS PO (20:39)
[2024-04-24] MEDS: GABAPENTIN 300 MG CAPSULE PO (20:39)
[2024-04-24] MEDS: SODIUM CHLORIDE 0.9 % (FLUSH) 10 ML SYRINGE 5 ML IVF (20:40)
[2024-04-24] MEDS: CARBOXYMETHYLCELLULOSE (REFRESH PLUS) TEARS 1 DROP EYE-BOTH (22:17)
[2024-04-24] MEDS: LORazepam 0.5 MG TABLET PO (22:17)
[2024-04-25] VITALS (7 sets, daily range): BP systolic 110–129; BP diastolic 69–80; PULSE 73–91; RESP 18; TEMP 36.2–37.1; O2SAT 92–99
--- NOTE | 2024-04-25 05:14 | PC.NURSE ---
Shift note: Pt continue to be on 1200ml fluid restriction with no free water. Serum Na level at 2000 was 126. Pt alert and oriented, mentally stable, no neurologic symptoms observed. Pt requested for Ativan at 2200 for difficulty sleeping and was effective.
[2024-04-25] MEDS: LEVOTHYROXINE 25 MCG TABLET 50 MCG PO (06:48)
[2024-04-25] MEDS: LEVOTHYROXINE 125 MCG TABLET PO (06:49)
[2024-04-25 07:00] LABS: Hematocrit 26.9 % (33.0-51.0); Hemoglobin* 8.9 gm/dL (12.0-16.0); Mean Corpuscular HGB Conc 33 gm/dL (32-36); Mean Corpuscular Hemoglobin 27 pg (26-34); Mean Corpuscular Volume 83 fL (80-100); Platelet Count* 218 K/uL (140-440); Red Blood Count 3.25 m/uL (4.00-5.20); White Blood Count* 4.29 K/uL (4.50-11.00)
[2024-04-25 07:04] LABS: Slide Review Reflex No
[2024-04-25 07:21] LABS: Chloride* 95 mmol/L (96-114)
[2024-04-25 07:22] LABS: Potassium* 3.7 mmol/L (3.6-5.1)
[2024-04-25 07:24] LABS: Anion Gap 2 mEq/L (7-15); Carbon Dioxide* 26 mmol/L (20-32); Creatinine* 0.5 mg/dL (0.5-1.5); Est. Creatinine Clearance* 57.05; Estimated Glomerular Filt Rate 103 ml/min
[2024-04-25 07:25] LABS: Blood Urea Nitrogen* 3 mg/dL (7-30); Calcium* 8.1 mg/dL (8.4-10.6); Glucose* 75 mg/dL (60-115); Magnesium* 1.6 mg/dL (1.5-2.6)
[2024-04-25] MEDS: SODIUM CHLORIDE 1 GM TABLET PO ×4 (07:51→21:50)
[2024-04-25] MEDS: OMEPRAZOLE 20 MG CAPSULE DR 40 MG PO (07:52)
[2024-04-25 07:54] LABS: Sodium* 123 mmol/L (135-149)
[2024-04-25] MEDS: APIXABAN 5 MG TABLET PO ×2 (10:08→21:50)
[2024-04-25] MEDS: CETIRIZINE HCL 10 MG TABLET PO (10:08)
[2024-04-25] MEDS: MAGNESIUM OXIDE 400 MG TABLET PO (10:09)
[2024-04-25] MEDS: MEMANTINE HCL 10 MG TABLET PO (10:09)
[2024-04-25] MEDS: FLUTICASONE PROPIONATE NASAL 1 SPRAY NOSTRIL-B (10:09)
[2024-04-25] MEDS: SODIUM CHLORIDE 0.9 % (FLUSH) 10 ML SYRINGE 5 ML IVF ×2 (10:10→21:47)
[2024-04-25] MEDS: METOPROLOL TARTRATE 25 MG TABLET 6.25 MG PO (10:10)
--- NOTE | 2024-04-25 14:46 | PM.IMPN1 ---
Progress Note: A&P Assessment and plan (1) Hyponatremia: Problem details: - known history of SIADH, baseline sodium 129 (per last hospitalization) - on admission, repeat Na on the floor 117, will give 50mL of hypertonic saline and follow sodium closely to ensure appropriate rate of correction - continue home supplement, mild fluid restriction + thrice daily protein shakes 04/22: Sodium improved to 120. Resumed home sodium tabs to t.i.d.. Recheck sodium 122 04/23: Sodium dropped again to 118 yesterday, received a 2nd bolus of hypertonic saline, improved to 122 this morning. Will give a 3rd dose of hypertonic saline with recheck of sodium over the course of the day. Continues on mild fluid restriction, sodium tablets, protein shakes. Okay for table salt in diet. 04/24: I think a reasonable goal for discharge to home is 127 (she may only get to 125, sustained, to consider as well). Fluid restriction has been decreased to 1200 mL. No free water - essentially no unsalted water. Family will picker/puller red and orange Gatorade. They will also picker/puller chocolate Fair Life protein drinks as she enjoys these. She will also drink V8. Family will also bring in pickles and olives as she enjoys these. These fluids would be an easy transition when she is ready to discharge to home as well. Pharmacy is reviewing any medications that may be contributing. This is likely multifactorial. Remainder of electrolytes acceptable. Magnesium 1.7. Currently on oral supplement once daily. Will give 1 time IV Mag dose. Continue with sodium tablets, hypertonic saline as needed. Sodium recheck at 1400pm and 2000pm. 04/25: Serum sodium a at 8:00 p.m. yesterday was 127. This morning is down to 123. Denies free water intake. Adhering to efforts to raise sodium levels. Ordered a serum osmolality and urine osmolality for send out to [facility]. Results still pending. - Will give a single 50 mL IV infusion of 3% hypertonic saline today. - Will initiate loop diuretic, furosemide, 20 mg p.o. twice daily to help decrease urine osmolality and increased serum osmolality. - Ordered urea 15 g daily. Our pharmacist does not have this. Efforts to find this in surrounding pharmacies was unsuccessful. The the earliest we might receive it is sometime on Saturday. - Meanwhile I will initiate demeclocycline 150 mg p.o. b.i.d. and if she tolerates this will increase to the more standard dose of 300 mg p.o. b.i.d. as a bridging mechanism until we obtain the urea. I have been informed that we do not have the demeclocycline but are more likely to be able to find in the next 24 hours then urea. - continue with fluid restriction of 1200 mL daily, sodium tabs, salt rich diet as already initiated. - continue to monitor serum sodiums. 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 Status: Acute (3) Anorexia: Problem details: - associated with metastatic cancer. Weight loss of 12 kg since November, stable since January. Status: Acute (4) Chronic pulmonary embolism: Problem details: - on Eliquis BID Status: Acute (5) Hypotension: Problem details: Acute on chronic, recurrent, suspected currently in setting of decreased oral intake, fluid restriction, hyponatremia. Asymptomatic with episodes SBP <90 on 04/22. H/o SBP 70-80s in past. Did give 250ml bolus, improved to >90. Continuing to monitor. Holding beta-tianna as needed with parameters Status: Acute (6) Malnutrition: Problem details: Nutritional imbalance. 12 kg weight loss since November (max 15 kg over this time period). Anorexia. Decreased oral intake. Suspected reduced muscle mass Suspected in setting of small cell lung cancer with Mets Status: Acute (7) Seasonal allergies: Problem details: Worsening symptoms over past 48 hours. Afebrile Continue antihistamine. Family will bring in Flonase. Saline nasal spray p.r.n. Continue to monitor Status: Acute Plan 1. Reviewed impression and recommendations with patient and her [id number]. Answered their questions. 2. They are agreeable with above stated plans and recommendations. Time Spent With Patient Total time spent: 50 minutes Subjective Date Seen: 04/25/24 Interval history: Hospital day 5: Hyponatremia, SIADH, extensive stage small cell lung cancer. Acknowledges she feels much better than when she 1st presented, and that has been slow and gradual. Tolerating current efforts including 1200 mL fluid restriction, sodium tablets, foods and drinks rich in sodium, no free water. Denies orthostasis, lightheadedness, dizziness. Denies nausea vomiting. Tells me she continues to lose her hair. Exam Narrative: Exam Narrative: I examine her in her hospital room. Her [id number] and granddaughter are with her as well. Appears comfortable and in no acute distress while sitting in the recliner chair at her bedside. Alert and oriented to self, place, time, situation. Friendly, articulate, cooperative. Appears thin with sunken facial features and prominent bones. Neck is supple. Lungs clear to auscultation. Heart tones with regular rhythm. Abdomen is thin with active bowel sounds, soft, nontender. Extremities with trace edema. Independent with transfer, station, gait - she is preparing to take a shower. Skin dry and intact. No rashes, petechiae, cyanosis. Const: Vital Signs, click to edit/add: Vital Signs - 24 hr 04/24/24 15:00 04/24/24 15:00 04/24/24 15:00 Temperature 97.3 F L Pulse Rate [Bilate ral Dorsalis Pedis ] Pulse Rate [Bilate ral Radial] Pulse Rate [Pulse Oximeter] 78 83 Respiratory Rate 20 18 18 Blood Pressure [Le ft Arm] 122/73 Pulse Oximetry 93 93 Oxygen Delivery [facility] Room Air Room Air 04/24/24 19:00 04/24/24 22:15 04/24/24 23:00 Temperature 97.3 F L 98.6 F Pulse Rate [Bilate ral Dorsalis Pedis ] Pulse Rate [Bilate ral Radial] 91 91 Pulse Rate [Pulse Oximeter] 88 88 88 Respiratory Rate 18 18 18 Blood Pressure [Le ft Arm] 125/75 146/86 H Pulse Oximetry 96 99 Oxygen Delivery [facility] Room Air Room Air 04/24/24 23:00 04/25/24 03:00 04/25/24 07:00 Temperature 98.6 F Pulse Rate [Bilate ral Dorsalis Pedis ] Pulse Rate [Bilate ral Radial] Pulse Rate [Pulse Oximeter] 85 Respiratory Rate 18 18 Blood Pressure [Le ft Arm] 110/69 Pulse Oximetry 99 92 99 Oxygen Delivery [facility] Room Air Room Air Room Air 04/25/24 07:30 04/25/24 11:42 Temperature 98.7 F 97.1 F L Pulse Rate [Bilate ral Dorsalis Pedis ] 73 Pulse Rate [Bilate ral Radial] Pulse Rate [Pulse Oximeter] 83 Respiratory Rate 18 18 Blood Pressure [Le ft Arm] 122/74 118/80 Pulse Oximetry 98 98 Oxygen Delivery Me thod Room Air Room Air Labs Labs: Laboratory Results - last 24 hr 04/24/24 04/25/24 04/25/24 20:10 06:20 11:07 WBC 4.29 L RBC 3.25 L Hgb 8.9 L Hct 26.9 L MCV 83 MCH 27 MCHC 33 Plt Count 218 Sodium 126 L 123 L* Potassium 3.7 Chloride 95 L Carbon Dioxide 26 Anion Gap 2 L BUN 3 L Creatinine 0.5 Estimated Creat Clear 57.05 Estimated GFR 103 Glucose 75 Calcium 8.1 L Magnesium 1.6 Cortisol Lab Acknowledgement Test Added 04/25/24 11:27 WBC RBC Hgb Hct MCV MCH MCHC Plt Count Sodium Potassium Chloride Carbon Dioxide Anion Gap BUN Creatinine Estimated Creat Clear Estimated GFR Glucose Calcium Magnesium Cortisol Cancelled Lab Acknowledgement
[2024-04-25] MEDS: 3 % SODIUM CHLORIDE 500 ml 50 ML 33.33 ML IV (15:10)
[2024-04-25] MEDS: FUROSEMIDE 20 MG TABLET PO (15:53)
[2024-04-25 15:57] LABS: Sodium Urine Random* 181
[2024-04-25] MEDS: OXYCODONE 5 MG TABLET PO (18:59)
--- NOTE | 2024-04-25 19:05 | PC.NURSE ---
shift note: vss wnl. pt up indept to bathroom and to chair with walker. pt medicated for rt 6/10 rib pain. IV patent Lt wrist. bilat l/e non pitting edema.
[2024-04-25 20:25] LABS: Sodium* 123 mmol/L (135-149)
[2024-04-25] MEDS: CARBOXYMETHYLCELLULOSE (REFRESH PLUS) TEARS 1 DROP EYE-BOTH (21:48)
[2024-04-25] MEDS: MELATONIN 3 MG TABLET PO (21:48)
[2024-04-25] MEDS: OLANZapine 5 MG TAB.RAPDIS PO (21:50)
[2024-04-25] MEDS: MEMANTINE HCL 10 MG TABLET 5 MG PO (21:50)
[2024-04-25] MEDS: GABAPENTIN 300 MG CAPSULE PO (21:51)
[2024-04-25] MEDS: ACETAMINOPHEN 325 MG TABLET 650 MG PO (21:51)
[2024-04-25] MEDS: ONDANSETRON ODT 4 MG TAB 8 MG PO (22:04)
[2024-04-26] VITALS (8 sets, daily range): BP systolic 96–133; BP diastolic 60–77; PULSE 65–83; RESP 16–20; TEMP 36.1–37.2; O2SAT 93–99
[2024-04-26] MEDS: LEVOTHYROXINE 125 MCG TABLET PO (06:45)
[2024-04-26] MEDS: ACETAMINOPHEN 325 MG TABLET 650 MG PO ×2 (06:45→15:42)
[2024-04-26] MEDS: LEVOTHYROXINE 25 MCG TABLET 50 MCG PO (06:45)
--- NOTE | 2024-04-26 06:54 | PC.NURSE ---
END OF SHIFT NOTE: A&Ox4. AMBULATES INDEPENDENTLY WITH WALKER. PRN PAIN MEDS ADMINISTERED (SEE EMAR) FOR 5-6/10 RIGHT RIB PAIN. REFRESHER GTTS ADMINISTERED FOR DRY EYES. VOIDED FOR A TOTAL OF 1275ML THIS SHIFT. PRN SLEEP AIDE GIVEN FOR DIFFICULTY SLEEPING; EFFECTIVE PT SLEPT WELL DURING HS. PRN ZOFRAN ADMINISTERED FOR ONE EPISODE OF NAUSEA; NO EMESIS. CALL LIGHT WITHIN PT REACH.
[2024-04-26 07:16] LABS: Hematocrit 26.7 % (33.0-51.0); Hemoglobin* 8.8 gm/dL (12.0-16.0); Mean Corpuscular HGB Conc 33 gm/dL (32-36); Mean Corpuscular Hemoglobin 27 pg (26-34); Mean Corpuscular Volume 82 fL (80-100); Platelet Count* 221 K/uL (140-440); Red Blood Count 3.25 m/uL (4.00-5.20); White Blood Count* 3.96 K/uL (4.50-11.00)
[2024-04-26 07:34] LABS: Slide Review Reflex No
[2024-04-26 07:59] LABS: Chloride* 94 mmol/L (96-114); Potassium* 3.8 mmol/L (3.6-5.1)
[2024-04-26 08:02] LABS: Anion Gap 2 mEq/L (7-15); Blood Urea Nitrogen* 4 mg/dL (7-30); Carbon Dioxide* 26 mmol/L (20-32); Creatinine* 0.5 mg/dL (0.5-1.5); Est. Creatinine Clearance* 57.05; Estimated Glomerular Filt Rate 103 ml/min; Glucose* 76 mg/dL (60-115)
[2024-04-26 08:03] LABS: Calcium* 8.1 mg/dL (8.4-10.6)
[2024-04-26 08:05] LABS: Sodium* 122 mmol/L (135-149)
[2024-04-26] MEDS: 3 % SODIUM CHLORIDE 500 ml 50 ML 33.33 ML IV (09:23)
[2024-04-26] MEDS: CETIRIZINE HCL 10 MG TABLET PO (09:24)
[2024-04-26] MEDS: MAGNESIUM OXIDE 400 MG TABLET PO (09:24)
[2024-04-26] MEDS: OMEPRAZOLE 20 MG CAPSULE DR 40 MG PO (09:24)
[2024-04-26] MEDS: APIXABAN 5 MG TABLET PO ×2 (09:24→21:06)
[2024-04-26] MEDS: SODIUM CHLORIDE 0.9 % (FLUSH) 10 ML SYRINGE 5 ML IVF ×2 (09:24→21:09)
[2024-04-26] MEDS: METOPROLOL TARTRATE 25 MG TABLET 6.25 MG PO (09:30)
[2024-04-26] MEDS: MEMANTINE HCL 10 MG TABLET PO (09:30)
[2024-04-26] MEDS: FUROSEMIDE 20 MG TABLET PO ×2 (09:30→21:06)
[2024-04-26 13:52] LABS: Anion Gap 3 mEq/L (7-15); Blood Urea Nitrogen* 7 mg/dL (7-30); Calcium* 7.8 mg/dL (8.4-10.6); Carbon Dioxide* 25 mmol/L (20-32); Chloride* 95 mmol/L (96-114); Creatinine* 0.6 mg/dL (0.5-1.5); Est. Creatinine Clearance* 57.05; Estimated Glomerular Filt Rate 98 ml/min; Glucose* 92 mg/dL (60-115); Potassium* 4.1 mmol/L (3.6-5.1)
[2024-04-26 13:53] LABS: Sodium* 123 mmol/L (135-149)
[2024-04-26] MEDS: CARBOXYMETHYLCELLULOSE (REFRESH PLUS) TEARS 1 DROP EYE-BOTH ×2 (13:53→21:04)
--- NOTE | 2024-04-26 16:20 | PM.IMPN1 ---
Progress Note: A&P Assessment and plan (1) Hyponatremia: Problem details: - known history of SIADH, baseline sodium 129 (per last hospitalization) - on admission, repeat Na on the floor 117, will give 50mL of hypertonic saline and follow sodium closely to ensure appropriate rate of correction - continue home supplement, mild fluid restriction + thrice daily protein shakes 04/22: Sodium improved to 120. Resumed home sodium tabs to t.i.d.. Recheck sodium 122 04/23: Sodium dropped again to 118 yesterday, received a 2nd bolus of hypertonic saline, improved to 122 this morning. Will give a 3rd dose of hypertonic saline with recheck of sodium over the course of the day. Continues on mild fluid restriction, sodium tablets, protein shakes. Okay for table salt in diet. 04/24: I think a reasonable goal for discharge to home is 127 (she may only get to 125, sustained, to consider as well). Fluid restriction has been decreased to 1200 mL. No free water - essentially no unsalted water. Family will picked edge sewing machine operator red and orange Gatorade. They will also picked edge sewing machine operator chocolate Fair Life protein drinks as she enjoys these. She will also drink V8. Family will also bring in pickles and olives as she enjoys these. These fluids would be an easy transition when she is ready to discharge to home as well. Pharmacy is reviewing any medications that may be contributing. This is likely multifactorial. Remainder of electrolytes acceptable. Magnesium 1.7. Currently on oral supplement once daily. Will give 1 time IV Mag dose. Continue with sodium tablets, hypertonic saline as needed. Sodium recheck at 1400pm and 2000pm. 04/25: Serum sodium a at 8:00 p.m. yesterday was 127. This morning is down to 123. Denies free water intake. Adhering to efforts to raise sodium levels. Ordered a serum osmolality and urine osmolality for send out to [facility]. Results still pending. - Will give a single 50 mL IV infusion of 3% hypertonic saline today. - Will initiate loop diuretic, furosemide, 20 mg p.o. twice daily to help decrease urine osmolality and increased serum osmolality. - Ordered urea 15 g daily. Our pharmacist does not have this. Efforts to find this in surrounding pharmacies was unsuccessful. The the earliest we might receive it is sometime on Saturday. - Meanwhile I will initiate demeclocycline 150 mg p.o. b.i.d. and if she tolerates this will increase to the more standard dose of 300 mg p.o. b.i.d. as a bridging mechanism until we obtain the urea. I have been informed that we do not have the demeclocycline but are more likely to be able to find in the next 24 hours then urea. - continue with fluid restriction of 1200 mL daily, sodium tabs, salt rich diet as already initiated. - continue to monitor serum sodium. 04/26: -sodium 122 - 123. -serum osmolarity is 513; urine osmolarity 264. Lasix dosing will be increased to 20mg BID -tolvaptan and conivaptan? demeclocycline? urea? I will speak with endo and or oncology in the am -is there a change in her symptoms? dizziness; floor moving? yes, improved. -This is likely paraneoplastic effect and will be lifelong 04/27 -sodium 121 -on 20mg lasix BID -oncology recommended adjusting target to low to mid 120's. salt tabs. no recommendation on the tolvaptan, urea or demeclocyline. -Dr. Bang will speak with [facility] oncology team and I will likely discharge her in the morning with close clinic followup this week. 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 Status: Acute (3) Anorexia: Problem details: - associated with metastatic cancer. Weight loss of 12 kg since November, stable since January. Status: Acute (4) Chronic pulmonary embolism: Problem details: - on Eliquis BID Status: Acute (5) Hypotension: Problem details: Acute on chronic, recurrent, suspected currently in setting of decreased oral intake, fluid restriction, hyponatremia. Asymptomatic with episodes SBP <90 on 04/22. H/o SBP 70-80s in past. Did give 250ml bolus, improved to >90. Continuing to monitor. Holding beta-tianna as needed with parameters Status: Acute (6) Malnutrition: Problem details: Nutritional imbalance. 12 kg weight loss since November (max 15 kg over this time period). Anorexia. Decreased oral intake. Suspected reduced muscle mass Suspected in setting of small cell lung cancer with Mets Status: Acute (7) Seasonal allergies: Problem details: Worsening symptoms over past 48 hours. Afebrile Continue antihistamine. Family will bring in Flonase. Saline nasal spray p.r.n. Continue to monitor Status: Acute Subjective Date Seen: 04/26/24 Interval history: Daily Progress Note - Hospital Medicine Day #: 6 CC: Hyponatremia secondary to SIADH secondary to metastatic lung cancer 24 HOUR UPDATE: Stable night. Feels about the same. Overall she is weak but may be slightly improved. She has heating the fluid restriction and just would like to drink some coffee. Notable Labs, Micro, Rads, Interventions: Hemoglobin is slowly drifting down 8.8 today, on admission she was 9.7. No obvious blood loss. Sodiums have been at their shel[place] 117 and 118. She did peak at 1:26 a.m. 2 days ago but has had a slow return to 122 and 123. She has been given hypertonic saline, salt tabs, fluid restriction. Objective: Vitals: see above Lungs: Clear. Cardiac: S1S2. Disposition/Potential discharge - Today I spent 50minutes seeing the patient, reviewing [facility] and EPIC notes/diagnostics, discussing the care plan with our care time that includes social work, PT/OT, pharmacy, RT, penitentiary and documenting my impressions and plan in the medical record. Prolonged Physician Services [id number] ([facility]) in conjunction with: 23826 (subsequent visit; 50 mins + 15 mins prolonged services = 65 mins total) I then went back for 15 mins to discuss the findings of ..... Alcohol 02756 >30 mins. We went over all the stigmata of alcoholism I see in this patient. I discussed the effects of chronic alcohol on the brain, liver, and heart. I recommended complete abstinence from alcohol and instructed on programs available at discharge from acute care. Smoking/Tobacco 09036 >10 mins. I went over the clinical stigmata of chronic tobacco use on the body. I explained the effect on the vasculature, lungs, heart, skin. I recommended complete abstinence from tobacco products and instructed on programs available at discharge from acute care. ACP first 30 mins [id number] I went over options for care during this current hospitalization and explained the difference between palliative care and hospice care. I described the likelihood of returning to previous functioning and what the options are going forward for care. Exam Const: Vital Signs, click to edit/add: Vital Signs - 24 hr 04/25/24 21:35 04/25/24 21:35 04/25/24 21:35 Temperature 97.9 F Pulse Rate [Pulse Oximeter] 83 83 Respiratory Rate 18 18 Blood Pressure [Ri ght Arm] 129/75 Pulse Oximetry 99 99 Oxygen Delivery Me thod Room Air Room Air 04/26/24 00:03 04/26/24 03:20 04/26/24 08:30 Temperature 97 F L 97.8 F Pulse Rate [Pulse Oximeter] 82 76 69 Respiratory Rate 16 18 16 Blood Pressure [Ri ght Arm] 111/72 113/67 112/72 Pulse Oximetry 98 98 93 Oxygen Delivery Me thod Room Air Room Air Room Air 04/26/24 08:30 04/26/24 11:00 04/26/24 15:00 Temperature 97.8 F Pulse Rate [Pulse Oximeter] 65 Respiratory Rate 18 18 20 Blood Pressure [Ri ght Arm] 109/65 Pulse Oximetry 99 99 95 Oxygen Delivery Me thod Room Air Room Air Room Air 04/26/24 15:40 Temperature 98.9 F Pulse Rate [Pulse Oximeter] 77 Respiratory Rate 18 Blood Pressure [Ri ght Arm] 133/77 Pulse Oximetry 99 Oxygen Delivery Me thod Room Air Labs Labs: Laboratory Results - last 24 hr 04/25/24 04/26/24 04/26/24 20:00 06:28 13:08 WBC 3.96 L RBC 3.25 L Hgb 8.8 L Hct 26.7 L MCV 82 MCH 27 MCHC 33 Plt Count 221 Sodium 123 L* 122 L* 123 L* Potassium 3.8 4.1 Chloride 94 L 95 L Carbon Dioxide 26 25 Anion Gap 2 L 3 L BUN 4 L 7 Creatinine 0.5 0.6 Estimated Creat Clear 57.05 57.05 Estimated GFR 103 98 Glucose 76 92 Calcium 8.1 L 7.8 L
[2024-04-26] MEDS: OXYCODONE 5 MG TABLET PO ×2 (16:29→21:04)
--- NOTE | 2024-04-26 19:09 | PC.NURSE ---
The patient is alert and orientated, although forgetful. VSS on RA. No reported symptoms by the patient from hyponatremia. Reports a decreased appetite, although drank 2 of her fairlife protein drinks. No free water. 1999 FR. 1 void today 250. Up ad isak w/ RW. 50ml infusion of 3% was infused. NA up 1 point. Recheck @ 2130. Reported moderate R rib pain this afternoon, PRN tylenol and oxycodone were given. Call light within reach. The patients family visited through out the whole day. Yolanda LOGAN BSN
[2024-04-26] MEDS: OLANZapine 5 MG TAB.RAPDIS PO (21:05)
[2024-04-26] MEDS: GABAPENTIN 300 MG CAPSULE PO (21:05)
[2024-04-26] MEDS: MEMANTINE HCL 10 MG TABLET 5 MG PO (21:05)
[2024-04-26] MEDS: MELATONIN 3 MG TABLET PO (21:06)
[2024-04-26 22:03] LABS: Sodium* 121 mmol/L (135-149)
[2024-04-27] MEDS: 3 % SODIUM CHLORIDE 500 ml 50 ML 33.33 ML IV ×2 (00:03→11:02)
[2024-04-27 04:30] VITALS: BP 99/60; PULSE 77; RESP 18; TEMP 36.9; O2SAT 98
[2024-04-27] MEDS: OXYCODONE 5 MG TABLET PO ×4 (04:40→19:58)
[2024-04-27 06:33] LABS: Hematocrit 27.7 % (33.0-51.0); Hemoglobin* 9.1 gm/dL (12.0-16.0); Mean Corpuscular HGB Conc 33 gm/dL (32-36); Mean Corpuscular Hemoglobin 27 pg (26-34); Mean Corpuscular Volume 82 fL (80-100); Platelet Count* 209 K/uL (140-440); Red Blood Count 3.39 m/uL (4.00-5.20); White Blood Count* 4.21 K/uL (4.50-11.00)
[2024-04-27 06:42] LABS: Slide Review Reflex Yes
[2024-04-27] MEDS: LEVOTHYROXINE 25 MCG TABLET 50 MCG PO (06:42)
[2024-04-27] MEDS: LEVOTHYROXINE 125 MCG TABLET PO (06:42)
[2024-04-27 06:56] LABS: Chloride* 90 mmol/L (96-114); Potassium* 3.7 mmol/L (3.6-5.1)
[2024-04-27 06:58] LABS: Creatinine* 0.5 mg/dL (0.5-1.5); Est. Creatinine Clearance* 57.05; Estimated Glomerular Filt Rate 103 ml/min
[2024-04-27 06:59] LABS: Anion Gap 2 mEq/L (7-15); Blood Urea Nitrogen* 8 mg/dL (7-30); Carbon Dioxide* 29 mmol/L (20-32)
[2024-04-27 07:00] LABS: Glucose* 78 mg/dL (60-115)
[2024-04-27 07:04] LABS: Sodium* 121 mmol/L (135-149)
--- NOTE | 2024-04-27 07:45 | PC.NURSE ---
END OF SHIFT NOTE: PT A&O. DENIES CP, SOB, N/V. AMBULATES INDEPENDENTLY WITHIN ROOM WITH WALKER. MAINTAINING FLUID RESTRICTION OF 2000MLS. REFRESHER DROPS GIVEN FOR DRY EYES. PRN OXY GIVEN FOR RIGHT RIB/SIDE PAIN. VSS ON RA; BP'S SOFT 96/60, 99/60. AFEBRILE. NA+ 121. PT RECEIVED 50ML BOLUS OF 3% SODIUM CHLORIDE. PT ASYMPTOMATIC. CALL LIGHT WITHIN PT?S REACH
[2024-04-27 08:07] VITALS: BP 103/66; PULSE 80; RESP 12; TEMP 37; O2SAT 98
[2024-04-27 08:13] LABS: Slide Review Acceptable Review (Acceptable)
[2024-04-27] MEDS: METOPROLOL TARTRATE 25 MG TABLET 6.25 MG PO (09:04)
[2024-04-27] MEDS: OMEPRAZOLE 20 MG CAPSULE DR 40 MG PO (09:04)
[2024-04-27] MEDS: MAGNESIUM OXIDE 400 MG TABLET PO (09:05)
[2024-04-27] MEDS: FUROSEMIDE 20 MG TABLET PO (09:05)
[2024-04-27] MEDS: APIXABAN 5 MG TABLET PO ×2 (09:05→19:58)
[2024-04-27] MEDS: CETIRIZINE HCL 10 MG TABLET PO (09:05)
[2024-04-27] MEDS: MEMANTINE HCL 10 MG TABLET PO (09:06)
[2024-04-27] MEDS: SODIUM CHLORIDE 0.9 % (FLUSH) 10 ML SYRINGE 5 ML IVF ×2 (09:06→22:31)
[2024-04-27] MEDS: FLUTICASONE PROPIONATE NASAL 1 SPRAY NOSTRIL-B (09:07)
[2024-04-27] MEDS: SODIUM CHLORIDE 1 GM TABLET 3 GM PO ×3 (11:01→18:02)
[2024-04-27] MEDS: ONDANSETRON ODT 4 MG TAB 8 MG PO (11:06)
[2024-04-27] MEDS: ACETAMINOPHEN 325 MG TABLET 650 MG PO (11:08)
[2024-04-27 11:15] VITALS: BP 96/61; PULSE 74; RESP 14; TEMP 36.4; O2SAT 99
--- NOTE | 2024-04-27 12:08 | PM.IMPN1 ---
Progress Note: A&P Assessment and plan (1) Hyponatremia: Problem details: - known history of SIADH, baseline sodium 129 (per last hospitalization) - on admission, repeat Na on the floor 117, will give 50mL of hypertonic saline and follow sodium closely to ensure appropriate rate of correction - continue home supplement, mild fluid restriction + thrice daily protein shakes 04/22: Sodium improved to 120. Resumed home sodium tabs to t.i.d.. Recheck sodium 122 04/23: Sodium dropped again to 118 yesterday, received a 2nd bolus of hypertonic saline, improved to 122 this morning. Will give a 3rd dose of hypertonic saline with recheck of sodium over the course of the day. Continues on mild fluid restriction, sodium tablets, protein shakes. Okay for table salt in diet. 04/24: I think a reasonable goal for discharge to home is 127 (she may only get to 125, sustained, to consider as well). Fluid restriction has been decreased to 1200 mL. No free water - essentially no unsalted water. Family will potato picker red and orange Gatorade. They will also potato picker chocolate Fair Life protein drinks as she enjoys these. She will also drink V8. Family will also bring in pickles and olives as she enjoys these. These fluids would be an easy transition when she is ready to discharge to home as well. Pharmacy is reviewing any medications that may be contributing. This is likely multifactorial. Remainder of electrolytes acceptable. Magnesium 1.7. Currently on oral supplement once daily. Will give 1 time IV Mag dose. Continue with sodium tablets, hypertonic saline as needed. Sodium recheck at 1400pm and 2000pm. 04/25: Serum sodium a at 8:00 p.m. yesterday was 127. This morning is down to 123. Denies free water intake. Adhering to efforts to raise sodium levels. Ordered a serum osmolality and urine osmolality for send out to [place]. Results still pending. - Will give a single 50 mL IV infusion of 3% hypertonic saline today. - Will initiate loop diuretic, furosemide, 20 mg p.o. twice daily to help decrease urine osmolality and increased serum osmolality. - Ordered urea 15 g daily. Our pharmacist does not have this. Efforts to find this in surrounding pharmacies was unsuccessful. The the earliest we might receive it is sometime on Saturday. - Meanwhile I will initiate demeclocycline 150 mg p.o. b.i.d. and if she tolerates this will increase to the more standard dose of 300 mg p.o. b.i.d. as a bridging mechanism until we obtain the urea. I have been informed that we do not have the demeclocycline but are more likely to be able to find in the next 24 hours then urea. - continue with fluid restriction of 1200 mL daily, sodium tabs, salt rich diet as already initiated. - continue to monitor serum sodium. 04/26: -sodium 122 - 123. -serum osmolarity is 513; urine osmolarity 264. Lasix dosing will be increased to 20mg BID -tolvaptan and conivaptan? demeclocycline? urea? I will speak with endo and or oncology in the am -is there a change in her symptoms? dizziness; floor moving? yes, improved. -This is likely paraneoplastic effect and will be lifelong 04/27 -sodium 121 -on 20mg lasix BID -oncology recommended adjusting target to low to mid 120's. salt tabs. no recommendation on the tolvaptan, urea or demeclocyline. -Dr. Bang will speak with [place] oncology team and I will likely discharge her in the morning with close clinic followup this week. 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 Status: Acute (3) Anorexia: Problem details: - associated with metastatic cancer. Weight loss of 12 kg since November, stable since January. Status: Acute (4) Chronic pulmonary embolism: Problem details: - on Eliquis BID Status: Acute (5) Hypotension: Problem details: Acute on chronic, recurrent, suspected currently in setting of decreased oral intake, fluid restriction, hyponatremia. Asymptomatic with episodes SBP <90 on 04/22. H/o SBP 70-80s in past. Did give 250ml bolus, improved to >90. Continuing to monitor. Holding beta-tianna as needed with parameters Status: Acute (6) Malnutrition: Problem details: Nutritional imbalance. 12 kg weight loss since November (max 15 kg over this time period). Anorexia. Decreased oral intake. Suspected reduced muscle mass Suspected in setting of small cell lung cancer with Mets Status: Acute (7) Seasonal allergies: Problem details: Worsening symptoms over past 48 hours. Afebrile Continue antihistamine. Family will bring in Flonase. Saline nasal spray p.r.n. Continue to monitor Status: Acute Subjective Date Seen: 04/27/24 Interval history: Daily Progress Note - Hospital Medicine Day #: 7 CC: Hyponatremia secondary to SIADH secondary to metastatic lung cancer 24 HOUR UPDATE: Stable night. Feels about the same. Overall she is weak but may be slightly improved. She has hating the fluid restriction and just would like to drink some coffee. Notable Labs, Micro, Rads, Interventions: Hemoglobin is 9.1 today, on admission she was 9.7. No obvious blood loss. Sodiums have been at their [place] 117 and 118. She did peak at 126 3 days ago but has had a slow return to 121 - 123. She has been given hypertonic saline, salt tabs, fluid restriction. Objective: edentulous; older than stated age; tired appearing. Vitals: see above Lungs: Clear. Cardiac: S1S2. Disposition/Potential discharge - home with family. Exam Const: Vital Signs, click to edit/add: Vital Signs - 24 hr 04/26/24 15:00 04/26/24 15:40 04/26/24 20:52 Temperature 98.9 F 98.1 F Pulse Rate [Pulse Oximeter] 77 82 Respiratory Rate 20 18 16 Blood Pressure [Le ft Arm] Blood Pressure [Ri ght Arm] 133/77 118/75 Pulse Oximetry 95 99 96 Oxygen Delivery Me thod Room Air Room Air Room Air 04/26/24 20:52 04/26/24 20:52 04/26/24 23:35 Temperature 97.5 F L Pulse Rate [Pulse Oximeter] 82 83 Respiratory Rate 16 16 16 Blood Pressure [Le ft Arm] Blood Pressure [Ri ght Arm] 96/60 Pulse Oximetry 96 96 Oxygen Delivery Me thod Room Air Room Air 04/27/24 04:30 04/27/24 08:07 04/27/24 08:07 Temperature 98.5 F 98.6 F Pulse Rate [Pulse Oximeter] 77 80 80 Respiratory Rate 18 12 12 Blood Pressure [Le ft Arm] Blood Pressure [Ri ght Arm] 99/60 103/66 Pulse Oximetry 98 98 Oxygen Delivery Me thod Room Air Room Air 04/27/24 08:07 04/27/24 11:15 Temperature 97.6 F Pulse Rate [Pulse Oximeter] 74 Respiratory Rate 12 14 Blood Pressure [Le ft Arm] 96/61 Blood Pressure [Ri ght Arm] Pulse Oximetry 98 99 Oxygen Delivery Me thod Room Air Room Air Labs Labs: Laboratory Results - last 24 hr 04/26/24 04/26/24 04/27/24 13:08 21:40 06:06 WBC 4.21 L RBC 3.39 L Hgb 9.1 L Hct 27.7 L MCV 82 MCH 27 MCHC 33 Plt Count 209 Diff Slide Review Acceptable Review Sodium 123 L* 121 L* 121 L* Potassium 4.1 3.7 Chloride 95 L 90 L Carbon Dioxide 25 29 Anion Gap 3 L 2 L BUN 7 8 Creatinine 0.6 0.5 Estimated Creat Clear 57.05 57.05 Estimated GFR 98 103 Glucose 92 78 Calcium 7.8 L 8.0 L
[2024-04-27 12:37] LABS: Magnesium* 1.4 mg/dL (1.5-2.6)
--- NOTE | 2024-04-27 14:58 | PC.NURSE ---
End of Shift: Patient pleasant and cooperative. Patient hypotensive but stable, lungs clear, BS WNL, IV SL and intact. Patient rates right side pain at most 5/10, 5 mg of oxy given once and tylenol given once. Patient independent in room with walker. Patient tolerating regular diet and urinating well. Patient has been working on one protein shake throughout this shift. Patient given 50 ml infusion of Normal Saline.
[2024-04-27 15:00] VITALS: BP 82/60; PULSE 76; PULSE 84; RESP 14; RESP 16; TEMP 36.9; O2SAT 97
[2024-04-27 19:00] VITALS: BP 105/62; PULSE 84; RESP 16; TEMP 36.9; O2SAT 95
[2024-04-27 19:00] LABS: Chloride* 93 mmol/L (96-114); Potassium* 4.2 mmol/L (3.6-5.1); Sodium* 127 mmol/L (135-149)
[2024-04-27 19:03] LABS: Anion Gap 5 mEq/L (7-15); Blood Urea Nitrogen* 12 mg/dL (7-30); Carbon Dioxide* 29 mmol/L (20-32); Creatinine* 0.7 mg/dL (0.5-1.5); Est. Creatinine Clearance* 57.05; Estimated Glomerular Filt Rate 95 ml/min
[2024-04-27 19:04] LABS: Calcium* 8.3 mg/dL (8.4-10.6); Glucose* 109 mg/dL (60-115)
[2024-04-27] MEDS: OLANZapine 5 MG TAB.RAPDIS PO (19:58)
[2024-04-27] MEDS: GABAPENTIN 300 MG CAPSULE PO (19:58)
[2024-04-27] MEDS: MEMANTINE HCL 10 MG TABLET 5 MG PO (19:59)
[2024-04-27 21:59] LABS: Sodium* 127 mmol/L (135-149)
[2024-04-27 23:00] VITALS: RESP 20; O2SAT 96
[2024-04-28 03:00] VITALS: BP 105/66; PULSE 81; RESP 20; TEMP 36.9; O2SAT 96
[2024-04-28] MEDS: LEVOTHYROXINE 125 MCG TABLET PO (06:08)
[2024-04-28] MEDS: OXYCODONE 5 MG TABLET PO ×2 (06:08→09:40)
[2024-04-28] MEDS: LEVOTHYROXINE 25 MCG TABLET 50 MCG PO (06:08)
[2024-04-28 06:30] LABS: Hematocrit 27.2 % (33.0-51.0); Hemoglobin* 8.9 gm/dL (12.0-16.0); Mean Corpuscular HGB Conc 33 gm/dL (32-36); Mean Corpuscular Hemoglobin 27 pg (26-34); Mean Corpuscular Volume 82 fL (80-100); Platelet Count* 221 K/uL (140-440); Red Blood Count 3.31 m/uL (4.00-5.20)
[2024-04-28 06:41] LABS: Slide Review Reflex No
--- NOTE | 2024-04-28 06:44 | PC.NURSE ---
23-07: indep in rm. Pt asleep majority of the shift. Rated back pain 5/10, 5mg oxy given. Last BM 04/22, pt reports feeling stool build up, standing order Docusate & Suppository placed, awaiting pharmacy verification for admin. ?
[2024-04-28 06:50] LABS: Chloride* 96 mmol/L (96-114); Potassium* 3.8 mmol/L (3.6-5.1); Sodium* 126 mmol/L (135-149)
[2024-04-28 06:53] LABS: Anion Gap 2 mEq/L (7-15); Blood Urea Nitrogen* 11 mg/dL (7-30); Calcium* 8.2 mg/dL (8.4-10.6); Carbon Dioxide* 28 mmol/L (20-32); Creatinine* 0.6 mg/dL (0.5-1.5); Est. Creatinine Clearance* 57.05; Estimated Glomerular Filt Rate 98 ml/min; Glucose* 77 mg/dL (60-115); Magnesium* 1.5 mg/dL (1.5-2.6)
[2024-04-28] MEDS: FLUTICASONE PROPIONATE NASAL 1 SPRAY NOSTRIL-B (08:10)
[2024-04-28] MEDS: SODIUM CHLORIDE 1 GM TABLET 3 GM PO (08:11)
[2024-04-28] MEDS: MAGNESIUM OXIDE 400 MG TABLET PO (08:12)
[2024-04-28] MEDS: METOPROLOL TARTRATE 25 MG TABLET 6.25 MG PO (08:12)
[2024-04-28] MEDS: CETIRIZINE HCL 10 MG TABLET PO (08:13)
[2024-04-28] MEDS: APIXABAN 5 MG TABLET PO (08:13)
[2024-04-28] MEDS: OMEPRAZOLE 20 MG CAPSULE DR 40 MG PO (08:13)
[2024-04-28] MEDS: MEMANTINE HCL 10 MG TABLET PO (08:14)
[2024-04-28] MEDS: SODIUM CHLORIDE 0.9 % (FLUSH) 10 ML SYRINGE 5 ML IVF (09:41)
[2024-04-28] MEDS: bisacodyL 10 MG SUPP.RECT PR (09:41)
[2024-04-28 10:02] VITALS: RESP 24; O2SAT 93
[2024-04-28 10:03] VITALS: BP 123/81; PULSE 97; RESP 24; TEMP 36.3; O2SAT 93
--- NOTE | 2024-04-28 11:52 | PC.NURSE ---
Discharge - Pt alert, oriented, cooperative and pleasant. Up with standby assistance, uses walker independently for support. Tolerating RA, regular diet/fluids. Pt reported pain in R lower ribs/back rated as 5/10. Given medication per MAR with pt reporting improved comfort. Pt told nursing staff her last BM was on 04/22, pt reported being able to pass small marbles of stool, but felt as though she needed to expel more. made aware, suppository given per MAR and pt consent with large BM reported after insertion by pt. Family at bedside, IV removed with catheter intact. Pt d/c'd to home with family members via wheelchair at approximately 1145.
--- NOTE | 2024-04-28 12:23 | P.DS_ITS ---
DS: Providers Provider Date Seen: 04/28/24 Date of admission: 04/21/24 16:39 Primary care physician: Not a Local Provider Admitting Clinician: Sean Limon MD Consults: 04/21/24 16:42 Consult to Nutrition [CONS] Routine Comment: Reason for consult:: Miscellaneous Comment: hyponatremia, metastatic cancer Attending Physician on discharge: Nelia Tanner MD [facility] Date of Discharge: 04/28/24 DS: Diagnosis Discharge Diagnosis (1) Hyponatremia: Status: Acute Problem details: - Known history of SIADH; paraneoplastic from wide spread cancer - baseline sodium is 127-129 - admit level was 117; rec'd hypertonic saline, sodium chloride tabs, oral lasix, fluid restriction - discussion regarding alternative therapies tolvaptan and conivaptan, demeclocycline, urea were discussed with heme/onc. we landed on lifting fluid restriction (patient comfort) and increasing sodium tabs to 9 grams a day. close f/u recommended. 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 (4) Metastasis to brain: Status: Acute Problem details: left frontal lobe, right basal ganglia, left posterior paramedian cerebellar hemisphere DS: Summary Hospital Course Hospital Course: FINAL DIAGNOSIS/FOLLOW UP ISSUES: Severe hyponatremia-likely from SIADH as part of the paraneoplastic syndrome related to her extensive cancer diagnosis. We arrived at 9 g of sodium chloride tablets divided t.i.d., protein supplementation shakes, very mild fluid restriction based on what is comfortable for Kike. Palliative care - patient has a video appointment today with her palliative care team Small cell lung cancer - patient has follow-up with her oncologist this week BRIEF HOSPITAL COURSE: Patient was admitted for 8 days. Synopsis of acute inpatient issues are outlined above. Chronic medical conditions with notable findings outlined above. Flavia constantino was stable throughout her admission. It took us several days to figure out how to keep her sodium supported. Multiple rounds of hypertonic saline, escalating doses of sodium chloride, Lasix, fluid restrictions were attempted. Secondary to patient comfort and direction we lifted the fluid restriction but escalated the dose to 9 g of sodium chloride. We also initiated protein supplementation via meal replacement protein drinks t.i.d.. We addressed her constipation. We conference to with her oncologist. DISCHARGE MEDICATIONS: See Reconciled list - SIGNIFICANT CHANGES: Sodium chloride 9 g divided t.i.d. Refills of her morphine and oxycodone Recommendations to trial Linzess and increase her bulk forming supplementation of medicine new sole for constipation Specific instructions to the patient and follow-up are outlined below. REVIEW OF SYSTEMS No new chest pain or dyspnea Pain controlled No voiding difficulties Tolerating diet challenge PHYSICAL EXAM: CONSTITUTIONAL: Chronically ill, cachectic VITAL SIGNS: see record. HEENT: Normocephalic, atraumatic. PERRL, EOMI, conjunctivae pink, no scleral icterus. Ears and nose externally normal. Pharynx normal. NECK: No JVD. No carotid bruit, no thyromegaly, no adenopathy. CHEST: Clear to auscultation bilaterally. HEART: S1 and S2 normal. Edema ABDOMEN: Soft, nontender. Normal bowel sounds. MUSCULOSKELETAL: No gross joint deformity or swelling. NEURO: Cranial nerves intact. Grossly intact. No asymmetric findings. SKIN: No rashes, petechiae, concerning changes PSYCHIATRIC: Mood euthymic. DISPOSITION: Home with family Time spent on discharge 37 minutes. Status at Discharge Functional status at discharge: uses cane/walker Overall status at discharge: patient is progressing back to baseline Time Spent with Patient Time attestation: Total time spent providing and/or coordinating discharge services: Time spent: Greater than 30 minutes Exam Const: Vital Signs, click to edit/add: Vital Signs - 24 hr 04/27/24 15:00 04/27/24 15:00 04/27/24 15:00 Temperature 98.4 F Pulse Rate [Bilate ral Dorsalis Pedis ] 76 Pulse Rate [Pulse Oximeter] 84 84 Respiratory Rate 14 16 14 Blood Pressure [Ri ght Arm] 82/60 L Pulse Oximetry 97 97 Oxygen Delivery Me thod Room Air Room Air 04/27/24 19:00 04/27/24 23:00 04/27/24 23:00 Temperature 98.4 F Pulse Rate [Bilate ral Dorsalis Pedis ] Pulse Rate [Pulse Oximeter] 84 Respiratory Rate 16 20 20 Blood Pressure [Ri ght Arm] 105/62 Pulse Oximetry 95 96 Oxygen Delivery Me thod Room Air Room Air 04/28/24 03:00 04/28/24 10:02 04/28/24 10:03 Temperature 98.5 F 97.4 F L Pulse Rate [Bilate ral Dorsalis Pedis ] Pulse Rate [Pulse Oximeter] 81 97 Respiratory Rate 20 24 24 Blood [facility] [[facility]] 105/66 123/81 Pulse Oximetry 96 93 93 Oxygen Delivery Me thod Room Air Room Air Room Air DS: Data Data Completed and Pending Labs on day of discharge: Labs from last 24 hours 04/28/24 04/27/24 04/27/24 05:45 21:38 18:02 WBC 4.00 L RBC 3.31 L Hgb 8.9 L Hct 27.2 L MCV 82 MCH 27 MCHC 33 Plt Count 221 Sodium 126 L 127 L 127 L Potassium 3.8 4.2 Chloride 96 93 L Carbon Dioxide 28 29 Anion Gap 2 L 5 L BUN 11 12 Creatinine 0.6 0.7 Estimated Creat Clear 57.05 57.05 Estimated GFR 98 95 Glucose 77 109 Calcium 8.2 L 8.3 L Magnesium 1.5 TSH 04/27/24 06:06 WBC RBC Hgb Hct MCV MCH MCHC Plt Count Sodium Potassium Chloride Carbon Dioxide Anion Gap BUN Creatinine Estimated Creat Clear Estimated GFR Glucose Calcium Magnesium 1.4 L TSH 1.550 Discharge Plan Discharge Disposition: Home w/ Parent or Adult Date of Admission: 04/21/24 16:39 Attending Provider on Discharge: Nelia Tanner Primary Care Provider: Provider,Not a Local Anticipated Discharge Date/Time: 04/28/24 09:24 Discharge Medications: New sodium chloride 1,000 mg Tablet,Soluble 3,000 mg PO TIDWM Qty: 270 0RF Continued acetaminophen 500 mg capsule 500 mg PO Q6H PRN albuterol sulfate 90 mcg/actuation HFA aerosol inhaler 2 puff inhalation Q6H PRN calcium carbonate-vitamin D3 600 mg-20 mcg (800 unit) tablet 1 tab PO QDAY Artificial Tears (cmc) 1 % drops 1 drp ophthalmic (eye) TID PRN Centrum Adult 50 Plus 80 mcg tablet,chewable 1 tab PO QDAY cyanocobalamin (vitamin B-12) 500 mcg lozenge 1,000 mcg PO Q48H cyclobenzaprine 10 mg tablet 10 mg PO Q6H PRN Eliquis 5 mg tablet 5 mg PO BID iron,carbonyl-vitamin C 65 mg iron- 125 mg tablet,delayed release (DR/EC) 1 tab PO QDAY lorazepam 0.5 mg tablet 0.5 mg PO BID PRN lutein 20 mg capsule 20 mg PO QDAY Rx Instructions: give with meal/snack olanzapine 5 mg tablet 5 mg PO HS omega 1-fwc-der-fish oil 300-1,000 mg capsule 1 cap PO QDAY pantoprazole 40 mg tablet,delayed release (DR/EC) 40 mg PO QDAY polyethylene glycol 3350 17 gram powder in packet 17 g PO DAILY PRN metoprolol tartrate 25 mg tablet 6.25 mg PO QDAY sennosides-docusate sodium 8.6-50 mg tablet 1 - 2 tab-cap PO QDAY levothyroxine 175 mcg tablet 175 mcg PO DAILY gabapentin 300 mg capsule 300 mg PO HS memantine 10 mg tablet 5 - 10 mg PO BID Rx Instructions: takes 10mg in AM, 5mg HS magnesium oxide 400 mg (241.3 mg magnesium) tablet 400 mg PO DAILY triamcinolone acetonide 0.1 % cream 1 applic topical DAILY PRN sodium chloride 1,000 mg tablet,soluble 1,000 mg PO DAILY oxycodone 5 mg tablet 5 mg PO Q4H PRNQty: 60 0RF prochlorperazine maleate 10 mg tablet 10 mg PO TID PRN (Reason: nausea and vomiting) Qty: 40 1RF Changed morphine 15 mg tablet extended release 15 mg PO BID Qty: 60 0RF Discharge Orders: Discharge Order (Routine); Ordered 04/28/24 Ordered By: Nelia Tanner Patient Education: Hyponatremia (DC) Additional Instructions: Follow-up with Palliative Care and Oncology as discussed Ask about Linzess for opioid constipation Make sure you are taking in some amount of Metamucil either by capsule, powder, cracker/cookie Activity Level: Activity as Tolerated Discharge Diet: Regular and High Protein/High Calorie Forms: MyHealth Info Instructions Discharge Comments: Pt has scheduled appointments with oncology and pallative care
== END 2024-04-28 11:45 | disposition home or self-care (01) | DRG 424 ==
PROVIDERS: Family Medicine; Internal Medicine; Physician Assistant; Student in an Organized Health Care Education/Training Program; Admitting Provider Family Medicine; Visit Provider Family Medicine
DX: E22.2 Syndrome of inappropriate secretion of antidiuretic hormone (principal); C34.31 Malignant neoplasm of lower lobe, right bronchus or lung; E43 Unspecified severe protein-calorie malnutrition; E88.A Wasting disease (syndrome) due to underlying condition; R63.0 Anorexia; Z68.24 Body mass index [BMI] 24.0-24.9, adult; C78.7 Secondary malignant neoplasm of liver and intrahepatic bile duct; C77.8 Secondary and unspecified malignant neoplasm of lymph nodes of multiple regions; C79.51 Secondary malignant neoplasm of bone; C79.31 Secondary malignant neoplasm of brain; I27.82 Chronic pulmonary embolism; Z79.01 Long term (current) use of anticoagulants; I95.9 Hypotension, unspecified; J43.9 Emphysema, unspecified; E03.9 Hypothyroidism, unspecified; E63.8 Other specified nutritional deficiencies; Z86.39 Personal history of other endocrine, nutritional and metabolic disease; J30.2 Other seasonal allergic rhinitis; Z87.891 Personal history of nicotine dependence
CPT/HCPCS: 36415; 80048; 82533; 83735; 83930; 83935; 84295; 84300; 84443; 85025; 85027; 87631; A9270; J3475; J7030; J7050; J7131

== ENCOUNTER 2024-04-27 10:30 | Outpatient (RCR) | payer BC, MEDICARE, SELFPAY ==
[2023-11-19 11:57] LABS: Basophils Percent Auto 0.9 % (0.0-3.0); Eosinophils Percent Auto 1.9 % (0.0-7.0); Hematocrit 30.9 % (33.0-51.0); Hemoglobin* 9.7 gm/dL (12.0-16.0); Immature Granulocytes Pct Auto 1.6 %; Lymphocytes Percent Auto 7.6 % (20-44); Mean Corpuscular HGB Conc 31 gm/dL (32-36); Mean Corpuscular Hemoglobin 24 pg (26-34); Mean Corpuscular Volume 76 fL (80-100); Monocytes Percent Auto 10.2 % (0.0-11.0); Neutrophils Percent Auto 77.8 % (42.0-72.0); Platelet Count* 418 K/uL (140-440); RDW Coefficient of Variation % 30.1 % (11.5-15.5); Red Blood Count 4.08 m/uL (4.00-5.20); White Blood Count* 11.11 K/uL (4.50-11.00)
[2023-11-19 12:07] LABS: Slide Review Reflex No
[2023-11-19 12:31] LABS: Albumin* 3.7 g/dL (3.3-5.0); Chloride* 95 mmol/L (96-114)
[2023-11-19 12:32] LABS: Potassium* 3.6 mmol/L (3.6-5.1); Sodium* 130 mmol/L (135-149)
[2023-11-19 12:34] LABS: Alanine Aminotransferase* 13 U/L (4-35); Alkaline Phosphatase* 98 U/L (40-150); Anion Gap 7 mEq/L (7-15); Aspartate Amino Transferase* 24 U/L (12-35); Bilirubin Total* 0.5 mg/dL (0.1-1.5); Blood Urea Nitrogen* 9 mg/dL (7-30); Carbon Dioxide* 28 mmol/L (20-32); Creatinine* 0.5 mg/dL (0.5-1.5); Est. Creatinine Clearance* 57.83; Estimated Glomerular Filt Rate 103 ml/min; Glucose* 95 mg/dL (60-115); Total Protein* 7.8 g/dL (6.0-8.3)
[2023-11-19 12:35] LABS: Calcium* 9.4 mg/dL (8.4-10.6)
--- NOTE | 2024-01-22 10:53 | URNOTE ---
Durvalumab ([id number]) is approved per [employer] Ref #[id number]
--- NOTE | 2024-02-04 15:57 | URNOTE ---
Per Rebecca at , ,Prior auth is not required for Lurbinectidin (J9223), Aloxi (J2469) and Udenyca (Q5111). Call ref #[id number]
[2024-02-06 13:23] VITALS: BP 104/63; PULSE 73; RESP 16; TEMP 36.4; O2SAT 95
[2024-02-06 13:24] LABS: Basophils Absolute Auto 0.05 K/uL (0.00-0.30); Basophils Percent Auto 0.7 % (0.0-3.0); Eosinophils Absolute Auto 0.24 K/uL (0.00-0.50); Eosinophils Percent Auto 3.3 % (0.0-7.0); Hematocrit 34.5 % (33.0-51.0); Hemoglobin* 10.5 gm/dL (12.0-16.0); Immature Granulocytes Abs Auto 0.01 K/uL (0.00-0.30); Immature Granulocytes Pct Auto 0.1 %; Lymphocytes Percent Auto 13.8 % (20-44); Mean Corpuscular HGB Conc 30 gm/dL (32-36); Mean Corpuscular Hemoglobin 27 pg (26-34); Mean Corpuscular Volume 89 fL (80-100); Monocytes Percent Auto 11.3 % (0.0-11.0); Neutrophils Absolute Auto 5.13 K/uL (1.7-7.0); Neutrophils Percent Auto 70.8 % (42.0-72.0); Platelet Count* 305 K/uL (140-440); RDW Coefficient of Variation % 18.4 % (11.5-15.5); Red Blood Count 3.88 m/uL (4.00-5.20); White Blood Count* 7.25 K/uL (4.50-11.00)
[2024-02-06 13:27] LABS: Slide Review Reflex No
[2024-02-06 13:41] LABS: Albumin* 3.1 g/dL (3.3-5.0); Chloride* 102 mmol/L (96-114); Potassium* 4.4 mmol/L (3.6-5.1); Sodium* 133 mmol/L (135-149)
[2024-02-06 13:43] LABS: Creatinine* 0.7 mg/dL (0.5-1.5); Est. Creatinine Clearance* 57.05; Estimated Glomerular Filt Rate 95 ml/min
[2024-02-06 13:44] LABS: Alanine Aminotransferase* 29 U/L (4-35); Alkaline Phosphatase* 96 U/L (40-150); Anion Gap 4 mEq/L (7-15); Aspartate Amino Transferase* 50 U/L (12-35); Bilirubin Total* 0.5 mg/dL (0.1-1.5); Blood Urea Nitrogen* 9 mg/dL (7-30); Calcium* 8.4 mg/dL (8.4-10.6); Carbon Dioxide* 27 mmol/L (20-32); Glucose* 96 mg/dL (60-115); Total Protein* 6.7 g/dL (6.0-8.3)
[2024-02-06] MEDS: PALONOSETRON 0.25 MG/5 ML inj IV (14:26)
[2024-02-06] MEDS: dexAMETHasone 20 MG in 0.9 % SODIUM CHLORIDE 100 ml 100 ML 408 MG IVPB (14:26)
[2024-02-06] MEDS: SODIUM CHLORIDE 0.9 % (FLUSH) 10 ML SYRINGE IVF (14:59)
[2024-02-06] MEDS: 0.9 % SODIUM CHLORIDE 250 ml IV (14:59)
[2024-02-07 15:30] VITALS: BP 92/59; PULSE 83; RESP 18; TEMP 36.2; O2SAT 94
[2024-02-07] MEDS: PEGFILGRASTIM-JMDB (Fulphila) 6 MG/0.6 ML SUBCUT (15:51)
--- NOTE | 2024-02-11 15:33 | ONC.NURNOTE ---
Patient's daughter in law called office with patient in the background stating that since receiving chemotherapy (lurbectine) on she has been nauseated, and dizzy. She has been taking olanzapine every night since before chemotherapy and prochlorperazine regularly with little relief. She has been injecting about 60 ounces of water daily with one meal per day with small snacks. Her dizziness comes and goes. She is also having bone aches that have increased over the weekend. Patient states that she had issues with anemia and needed blood transfusions with last chemotherapy down in [place]. Patient given an appointment for tomorrow to come into clinic to be assessed by nursing with a lab draw. COMMISSIONING SPECIALIST to discuss treatment based on results. Patient instructed to go to ER if dizziness worsens and she is falling, nausea turns into difficulty keeping fluids down, or in general feels unsafe.
[2024-02-12 08:47] VITALS: BP 92/61; PULSE 80; RESP 16; TEMP 36.2; O2SAT 92
[2024-02-12 08:49] VITALS: BP 75/53; PULSE 90; RESP 16; O2SAT 92
[2024-02-12 09:09] LABS: Basophils Percent Auto 0.3 % (0.0-3.0); Eosinophils Percent Auto 1.1 % (0.0-7.0); Hematocrit 33.6 % (33.0-51.0); Hemoglobin* 10.4 gm/dL (12.0-16.0); Immature Granulocytes Pct Auto 3.1 %; Lymphocytes Percent Auto 6.2 % (20-44); Mean Corpuscular HGB Conc 31 gm/dL (32-36); Mean Corpuscular Hemoglobin 27 pg (26-34); Mean Corpuscular Volume 87 fL (80-100); Monocytes Percent Auto 8.8 % (0.0-11.0); Neutrophils Percent Auto 80.5 % (42.0-72.0); Platelet Count* 275 K/uL (140-440); RDW Coefficient of Variation % 18.1 % (11.5-15.5); Red Blood Count 3.85 m/uL (4.00-5.20); White Blood Count* 18.63 K/uL (4.50-11.00)
[2024-02-12 09:11] LABS: Slide Review Reflex No
[2024-02-12 10:23] LABS: Albumin* 3.1 g/dL (3.3-5.0)
[2024-02-12 10:24] LABS: Chloride* 99 mmol/L (96-114); Potassium* 3.6 mmol/L (3.6-5.1); Sodium* 133 mmol/L (135-149)
[2024-02-12 10:26] LABS: Anion Gap 3 mEq/L (7-15); Aspartate Amino Transferase* 49 U/L (12-35); Bilirubin Total* 0.4 mg/dL (0.1-1.5); Carbon Dioxide* 31 mmol/L (20-32); Creatinine* 0.6 mg/dL (0.5-1.5); Est. Creatinine Clearance* 57.05; Estimated Glomerular Filt Rate 98 ml/min; Total Protein* 6.6 g/dL (6.0-8.3)
[2024-02-12 10:27] LABS: Alanine Aminotransferase* 36 U/L (4-35); Alkaline Phosphatase* 227 U/L (40-150); Blood Urea Nitrogen* 8 mg/dL (7-30); Calcium* 8.4 mg/dL (8.4-10.6); Glucose* 100 mg/dL (60-115)
[2024-02-12] MEDS: 0.9 % SODIUM CHLORIDE 1000 ml 1,000 ML IV (10:45)
[2024-02-12 11:55] VITALS: BP 89/60; PULSE 87
[2024-02-12 11:56] VITALS: BP 84/59; PULSE 87
--- NOTE | 2024-02-12 12:20 | ONC.NURNOTE ---
Patient arrived with aljrurin-iz-ugi stating since Saturday or Saturday patient has gotten weaker. Patients blood pressure was taken sitting-92/61--HR-80 with patient stating I have low blood pressure but does state she is dizzy when standing. Standing blood pressure-75/53--Heart rate-90 Patient followed anti-nausea plan after Lurbinectedin but after third day took as needed Labs taken and reviewed --Patient has been nauseated (Been going on for awhile on/off before new Lurbinectedin) Has been taking Compazine/Zofran and Olanzapine for nausea and Lorazepam for anxiety. Denies emesis and diarrhea Nursing reviewed with patient and daughter in law administration of anti nausea medications and explained they are some similar to each other (ie-Lorazepam/Olanazapine--Compazine/Zofran) Patient frequently was taking either a Compazine or Zofran 1-2 day Pxjsyy-Gxxdny-Fvteznn and then at night was taking a Olanzapine for nausea but then was anxious so took a Lorazepam as well except for last night. After review with MACHINIST INSTRUCTOR-Patient and axfxwzor-tu-she encouraged to increase fluids to atleast 2 quarts a day with electrolytes (Not alot of freewater due to hyponatremia in past) and increase boost to an additional bottle a day. Patient and exwxoqwa-se-qbv think this can be done and are refusing fluids Saturday stating patient Wants to go home for a few days Patient will have someone with her at all times and they will call if any more problems and told we can add her on to the schedule anyday. Patient feels better but still weak-Blood pressure after ciuukh-pcktjoc-39/60 hr-87 Standing 84/59 HR-87 Patient anxious to go home and is happy her hemoglobin is stable, noted was Alk/phos elevated and explained to her that the Lurbinectedin can cause this
[2024-02-27 08:03] LABS: Basophils Absolute Auto 0.04 K/uL (0.00-0.30); Basophils Percent Auto 0.8 % (0.0-3.0); Eosinophils Absolute Auto 0.08 K/uL (0.00-0.50); Eosinophils Percent Auto 1.5 % (0.0-7.0); Hematocrit 34.6 % (33.0-51.0); Hemoglobin* 10.9 gm/dL (12.0-16.0); Immature Granulocytes Abs Auto 0.04 K/uL (0.00-0.30); Immature Granulocytes Pct Auto 0.8 %; Lymphocytes Absolute Auto 1.16 K/uL (0.90-2.90); Lymphocytes Percent Auto 21.9 % (20-44); Mean Corpuscular HGB Conc 32 gm/dL (32-36); Mean Corpuscular Hemoglobin 27 pg (26-34); Mean Corpuscular Volume 86 fL (80-100); Monocytes Percent Auto 10.8 % (0.0-11.0); Neutrophils Absolute Auto 3.41 K/uL (1.7-7.0); Neutrophils Percent Auto 64.2 % (42.0-72.0); Platelet Count* 270 K/uL (140-440); RDW Coefficient of Variation % 17.6 % (11.5-15.5); Red Blood Count 4.03 m/uL (4.00-5.20)
[2024-02-27 08:08] LABS: Slide Review Reflex No
[2024-02-27 08:21] LABS: Albumin* 3.1 g/dL (3.3-5.0); Chloride* 101 mmol/L (96-114); Potassium* 3.7 mmol/L (3.6-5.1); Sodium* 133 mmol/L (135-149)
[2024-02-27 08:23] LABS: Anion Gap 3 mEq/L (7-15); Aspartate Amino Transferase* 40 U/L (12-35); Bilirubin Total* 0.6 mg/dL (0.1-1.5); Carbon Dioxide* 29 mmol/L (20-32); Creatinine* 0.6 mg/dL (0.5-1.5); Est. Creatinine Clearance* 57.05; Estimated Glomerular Filt Rate 98 ml/min; Total Protein* 6.6 g/dL (6.0-8.3)
[2024-02-27 08:24] LABS: Alanine Aminotransferase* 27 U/L (4-35); Alkaline Phosphatase* 108 U/L (40-150); Blood Urea Nitrogen* 7 mg/dL (7-30); Calcium* 8.5 mg/dL (8.4-10.6); Glucose* 99 mg/dL (60-115)
[2024-02-27] MEDS: SODIUM CHLORIDE 0.9 % (FLUSH) 10 ML SYRINGE IVF (09:46)
[2024-02-27] MEDS: 0.9 % SODIUM CHLORIDE 250 ml IV (09:48)
[2024-02-27] MEDS: PALONOSETRON 0.25 MG/5 ML inj IV (09:49)
[2024-02-27] MEDS: dexAMETHasone 20 MG in 0.9 % SODIUM CHLORIDE 100 ml 100 ML 408 MG IVPB (09:50)
[2024-02-28 11:12] VITALS: BP 71/45; BP 89/54; PULSE 177; PULSE 85; RESP 16; TEMP 36.1; O2SAT 95
[2024-02-28 11:14] VITALS: BP 88/59; PULSE 79; O2SAT 95
[2024-02-28 11:15] VITALS: BP 84/59; PULSE 92; O2SAT 98
[2024-02-28] MEDS: PEGFILGRASTIM-JMDB (Fulphila) 6 MG/0.6 ML SUBCUT (11:26)
--- NOTE | 2024-02-28 11:33 | PC.NURSE ---
Pt present at [facility] for fulphilia injection. BP low. Pt is eating and drinking and she is not having diarrhea. Shot given as ordered. Urged pt to call if any of the symptoms mentioned earlier develop.
--- NOTE | 2024-03-13 13:11 | URNOTE ---
Per Elieser at [facility], prior auth is not required for Dameon (Q5108). Call Ref #[id number]
[2024-03-19 08:12] VITALS: BP 94/61; PULSE 88; RESP 16; TEMP 36.1; O2SAT 97
[2024-03-19] MEDS: SODIUM CHLORIDE 0.9 % (FLUSH) 10 ML SYRINGE IVF (08:28)
[2024-03-19] MEDS: 0.9 % SODIUM CHLORIDE 250 ml IV (08:29)
[2024-03-19] MEDS: PALONOSETRON 0.25 MG/5 ML inj IV (08:31)
[2024-03-19] MEDS: dexAMETHasone 20 MG in 0.9 % SODIUM CHLORIDE 100 ml 100 ML 408 MG IVPB (08:35)
[2024-03-20 10:06] VITALS: BP 89/59; PULSE 99; RESP 16; TEMP 36; O2SAT 98
[2024-03-20] MEDS: PEGFILGRASTIM-JMDB (Fulphila) 6 MG/0.6 ML SUBCUT (10:19)
--- NOTE | 2024-03-20 11:12 | ONC.NURNOTE ---
Pt feeling well today; states she did not sleep much overnight. Jai Fulphila well; some soreness with injection. DC'd per wheelchair w family.
--- NOTE | 2024-03-25 15:54 | ONC.NURNOTE ---
Call received from patient's daughter in law Florina that patient was seen at [facility] ER on Saturday for left wrist/arm pain. Patient was diagnosed with a superficial thrombophlebitis and sent home with instructions to continue her Eliquis and apply heat to site. They requested she have follow up and possibly another US. RN called Florina to check in. She reports the area is on her left wrist area. She reports that they felt the area was improving yesterday but today the redness is going past the area that they had previously marked and that the site was a little more tender. There are no open areas or any blistering to the site. Patient is not experiencing any fevers. Spoke with Mireya Kahn APRN who would like to see patient tomorrow to assess her arm and possibly have a repeat Doppler of the area. RN called Florina back and patient is going to come in and see Mireya at 1 pm on 03/26 with a possible Doppler to follow. RN spoke with radiology to give them the heads up that Mireya maybe ordering a Doppler after she see's the patient. Called [facility] medical records and requested that they push the U/S images from her 03/23 ER visit to [place] so they could be compared.
--- NOTE | 2024-03-26 08:35 | ONC.NURNOTE ---
Arm Redness Update Received call from pt's daughter Florina reporting that pt was seen in ED last night for increased brightness of existing red area and a 2nd new red area. Diagnosed as cellulitis; pt began Cephalexin 500mg QID x 10 days and Bactrim BID x 10 days. Question of when to f/u in [facility]. Per Mireya Cantu APRN, ok to wait until f/u appt 04/13 if her arm improves, redness decreases, etc. Call [facility] and be seen if no improvement on ABX in ~ 1 wk. Florina verbalizes understanding.
--- NOTE | 2024-03-31 17:48 | ONC.NURNOTE ---
Left wrist phlebitis Called Ms. Ac today to check in regarding last week's calls about left IV phlebitis. Spoke with patient today. She reports that she was started on IV antibiotics after visit to [facility] ER last week. Her left wrist site is improving every day and she is tolerating the oral antibiotics without signficant side effects. She was encouraged to call us if she does not continuue to improve or developes intolerance to antibiotics. She is agreeable to this plan.
[2024-04-13 12:43] LABS: Basophils Absolute Auto 0.04 K/uL (0.00-0.30); Basophils Percent Auto 0.7 % (0.0-3.0); Eosinophils Absolute Auto 0.14 K/uL (0.00-0.50); Eosinophils Percent Auto 2.6 % (0.0-7.0); Hematocrit 31.6 % (33.0-51.0); Immature Granulocytes Abs Auto 0.06 K/uL (0.00-0.30); Immature Granulocytes Pct Auto 1.1 %; Lymphocytes Percent Auto 14.9 % (20-44); Mean Corpuscular HGB Conc 32 gm/dL (32-36); Mean Corpuscular Hemoglobin 27 pg (26-34); Mean Corpuscular Volume 85 fL (80-100); Monocytes Percent Auto 12.3 % (0.0-11.0); Neutrophils Absolute Auto 3.72 K/uL (1.7-7.0); Neutrophils Percent Auto 68.4 % (42.0-72.0); Platelet Count* 262 K/uL (140-440); RDW Coefficient of Variation % 16.7 % (11.5-15.5); Red Blood Count 3.72 m/uL (4.00-5.20); White Blood Count* 5.44 K/uL (4.50-11.00)
[2024-04-13 12:52] LABS: Slide Review Reflex No
[2024-04-13 12:56] LABS: Chloride* 99 mmol/L (96-114)
[2024-04-13 12:57] LABS: Albumin* 3.2 g/dL (3.3-5.0); Potassium* 4.2 mmol/L (3.6-5.1); Sodium* 128 mmol/L (135-149)
[2024-04-13 12:59] LABS: Anion Gap 3 mEq/L (7-15); Carbon Dioxide* 26 mmol/L (20-32); Creatinine* 0.6 mg/dL (0.5-1.5); Est. Creatinine Clearance* 57.05; Estimated Glomerular Filt Rate 98 ml/min
[2024-04-13 13:00] LABS: Alanine Aminotransferase* 20 U/L (4-35); Alkaline Phosphatase* 119 U/L (40-150); Aspartate Amino Transferase* 37 U/L (12-35); Bilirubin Total* 0.3 mg/dL (0.1-1.5); Blood Urea Nitrogen* 6 mg/dL (7-30); Calcium* 8.3 mg/dL (8.4-10.6); Glucose* 87 mg/dL (60-115); Total Protein* 6.6 g/dL (6.0-8.3)
[2024-04-13] MEDS: 0.9 % SODIUM CHLORIDE 1000 ml 1,000 ML IV (14:58)
[2024-04-13] MEDS: SODIUM CHLORIDE 0.9 % (FLUSH) 10 ML SYRINGE IVF (14:58)
[2024-04-16 13:48] LABS: Chloride* 96 mmol/L (96-114); Potassium* 4.2 mmol/L (3.6-5.1); Sodium* 126 mmol/L (135-149)
[2024-04-16 13:51] LABS: Anion Gap 5 mEq/L (7-15); Blood Urea Nitrogen* 6 mg/dL (7-30); Carbon Dioxide* 25 mmol/L (20-32); Creatinine* 0.5 mg/dL (0.5-1.5); Est. Creatinine Clearance* 57.05; Estimated Glomerular Filt Rate 103 ml/min
[2024-04-16 13:52] LABS: Calcium* 8.4 mg/dL (8.4-10.6); Glucose* 81 mg/dL (60-115)
--- NOTE | 2024-04-16 14:32 | ONC.NURNOTE ---
Pt's sodium level 126, decreased from Saturday. Pt called to come in for IVF today, per brynn Hawkins to have IVF on 04/17/24 and script for salt tabs will be sent to pt's pharmacy. Pt to return to [facility] to recheck Na level on 04/21/24. Pt verbalized understanding of plan of care.
[2024-04-17 10:12] VITALS: BP 102/67; PULSE 62; RESP 16; TEMP 36; O2SAT 95
[2024-04-17] MEDS: 0.9 % SODIUM CHLORIDE 1000 ml 1,000 ML IV (10:45)
[2024-04-21 11:09] LABS: Chloride* 90 mmol/L (96-114); Potassium* 4.1 mmol/L (3.6-5.1)
[2024-04-21 11:12] LABS: Anion Gap 4 mEq/L (7-15); Blood Urea Nitrogen* 5 mg/dL (7-30); Carbon Dioxide* 24 mmol/L (20-32); Creatinine* 0.6 mg/dL (0.5-1.5); Est. Creatinine Clearance* 57.05; Estimated Glomerular Filt Rate 98 ml/min; Glucose* 85 mg/dL (60-115)
[2024-04-21 11:13] LABS: Calcium* 8.1 mg/dL (8.4-10.6); Magnesium* 1.7 mg/dL (1.5-2.6)
[2024-04-21 11:37] LABS: Sodium* 118 mmol/L (135-149)
[2024-04-21] MEDS: 0.9 % SODIUM CHLORIDE 1000 ml 1,000 ML 500 ML IV (13:08)
== END 2024-05-17 23:59 | disposition home or self-care (01) ==
LOC: CCIC 10:30
PROVIDERS: Clinical Nurse Specialist; Physician Assistant; Visit Provider Internal Medicine Hematology & Oncology
DX: C34.91 Malignant neoplasm of unspecified part of right bronchus or lung (principal)
CPT/HCPCS: 36415; 80048; 80053; 82728; 83735; 84443; 85025; 96360; 96361; 96372; 96376; 96411; 96413; 99203; 99205; 99214; 99215; G0463; J1100; J2469; J7030; J7050; J9223; Q5108

== ENCOUNTER 2024-06-11 10:01 | Outpatient (CLI) | payer BC, MEDICARE, SELFPAY ==
[2024-06-11 11:11] LABS: Chloride* 98 mmol/L (96-114); Sodium* 130 mmol/L (135-149)
[2024-06-11 11:13] LABS: Creatinine* 0.7 mg/dL (0.5-1.5); Estimated Glomerular Filt Rate 95 ml/min
[2024-06-11 11:14] LABS: Anion Gap 6 mEq/L (7-15); Blood Urea Nitrogen* 11 mg/dL (7-30); Calcium* 8.4 mg/dL (8.4-10.6); Carbon Dioxide* 26 mmol/L (20-32); Glucose* 85 mg/dL (60-115)
== END 2024-06-11 10:02 | disposition home or self-care (01) ==
LOC: LAB 10:03
PROVIDERS: PCP Internal Medicine Hematology & Oncology; Visit Provider Internal Medicine Hematology & Oncology
DX: C34.91 Malignant neoplasm of unspecified part of right bronchus or lung (principal)
CPT/HCPCS: 36415; 80048

== ENCOUNTER 2024-06-15 14:35 | Outpatient (RCR) | payer BC, MEDICARE, SELFPAY ==
[2024-06-15 15:10] LABS: Chloride* 102 mmol/L (96-114)
[2024-06-15 15:11] LABS: Potassium* 3.8 mmol/L (3.6-5.1); Sodium* 132 mmol/L (135-149)
[2024-06-15 15:13] LABS: Creatinine* 0.6 mg/dL (0.5-1.5); Estimated Glomerular Filt Rate 98 ml/min
[2024-06-15 15:14] LABS: Anion Gap 5 mEq/L (7-15); Blood Urea Nitrogen* 12 mg/dL (7-30); Calcium* 8.2 mg/dL (8.4-10.6); Carbon Dioxide* 25 mmol/L (20-32); Glucose* 71 mg/dL (60-115)
== END 2024-12-12 23:59 | disposition home or self-care (01) ==
LOC: CCIC 14:35
PROVIDERS: Visit Provider Internal Medicine Hematology & Oncology
DX: C34.91 Malignant neoplasm of unspecified part of right bronchus or lung (principal)
CPT/HCPCS: 36415; 80048